=== PATIENT | female | born 1995 | race Caucasian/White ===

== ENCOUNTER 2020-07-15 18:08 | Inpatient (IN) | payer OTHER ==
[~2020-07-15] VITALS: Ht 165.1 cm; Wt 77.2 kg
[2020-07-15] MEDS ORDERED: LR 1,000 ML IV SCH (18:19)
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
--- OUTSIDE RECORDS SUMMARY | 2020-07-15 18:21 | CCD ---
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 Problem Asthma J45.909 Active 139491969 Problem Slow transit constipation K59.01 Active 172776 07 Problem Recurrent major depressive disorder, remission s tatus unspecified F33.9 Active 31969433 Problem Vitamin D deficiency E55.9 Active 44866451 Problem Mild asthma without complication, unspecified wh ether persistent J45.909 Active 330885022 Problem Chronic neck pain M54.2 Active 1850557683911 Problem Chronic right shoulder pain M25.511 Active 2679 11971 Problem Other muscle spasm M62.838 Active 40857804 Problem Pain in right knee M25.561 Active 2728919148192 04 ALLERGIES Allergen (clinical drug ingredient) Drug/Non Drug Allergy do cumented on EMR Reaction Allergy Type Onset Date Status Abilify Unknown Non Drug Allergy Active ENCOUNTERS from 1995 to 2020-05-03 Encounter Location Date Provider Diagnosis [facility] [address] [place] [phone] 15 May, 2002 Provider Test IMMUNIZATIONS Vaccine Route Administration Date Status PPD [...] Information RESULTS No Results REASON FOR VISIT No Information MEDICAL (GENERAL) HISTORY Type Description Date Medical [...] Coverage End Date [employer] [address] [facility] [id number] Vimal MORA self
--- OUTSIDE RECORDS SUMMARY | 2020-07-15 18:21 | CCD ---
Author Author Eduardo [facility] er Organization 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 Problem Asthma J45.909 Active 639862052 Problem Slow transit constipation K59.01 Active 035018 07 Problem Recurrent major depressive disorder, remission s tatus unspecified F33.9 Active 27783505 Problem Vitamin D deficiency E55.9 Active 46877137 Problem Mild asthma without complication, unspecified wh ether persistent J45.909 Active 890440591 Problem Chronic neck pain M54.2 Active 0783950872547 Problem Chronic right shoulder pain M25.511 Active 2679 65238 Problem Other muscle spasm M62.838 Active 15057493 Problem Pain in right knee M25.561 Active 6646451358740 04 ALLERGIES Allergen (clinical drug ingredient) Drug/Non Drug Allergy do cumented on EMR Reaction Allergy Type Onset Date Status Abilify Unknown Non Drug Allergy Active ENCOUNTERS from 1995 to 2020-04-30 Encounter Location Date Provider Diagnosis [facility] [address] [place] [address] Apr, Aatlindsey Negrete Foot pain M79.673 IMMUNIZATIONS Vaccine Route Administration Date Status PPD [...] Information RESULTS No Results REASON FOR VISIT Foot pain MEDICAL (GENERAL) HISTORY Type Description Date Medical [...] No Information FUNCTIONAL STATUS No Information ASSESSMENTS Encounter Date Diagnosis Assessment Notes Treatment Notes Treatm ent Clinical Notes Apr, Foot pain (ICD-10 - M79.673) 1. Patient returns to office after she injured her foot. She reports that about two weeks ago, she kicked a gate and broke her fourth metatarcal. She was evaluated in the emergency room upon the onset of the injury, the emergency department provided her with a walking cast. She reports that she is following with orthopedics for this issue. 2. She also reports that recently the air pocket in the cast deflated, and she is currently waiting for a call back on this matter. 3. Patient reports that she is , and her poker machine attendant provided her with 15 days of Oxycodone. I explained to her that I am not going to continue this, and should the othopedic specialist see it as advisable. 4. She is going to follow up with orthopedics in the coming weeks. 5. As this is a very difficult situation, I don't think that anything I am able to help this patient. This is not a chronic pain, this is an acute injury. Patient was able to contact her PCP regarding this, patient reports that PCP recommended that she follow up with Orthopedics. 6. Patient advised to see emergency department should her pain become unmanagable. 7. No medications prescribed at this time. 8. Follow up as needed. PLAN OF TREATMENT Treatment Notes Assessment Notes Clinical Notes Foot pain 1. Patient returns to office after she injured her foot. She reports that about two weeks ago, she kicked a gate and broke her fourth metatarcal. She was evaluated in the emergency room upon the onset of the injury, the emergency department provided her with a walking cast. She reports that she is following with orthopedics for this issue.2. She also reports that recently the air pocket in the cast deflated, and she is currently waiting for a call back on this matter.3. Patient reports that she is , and her poker machine attendant provided her with 15 days of Oxycodone. I explained to her that I am not going to continue this, and should the othopedic specialist see it as advisable.4. She is going to follow up with orthopedics in the coming weeks.5. As this is a very difficult situation, I don't think that anything I am able to help this patient. This is not a chronic pain, this is an acute injury. Patient was able to contact her PCP regarding this, patient reports that PCP recommended that she follow up with Orthopedics.6. Patient advised to see emergency department should her pain become unmanagable.7. No medications prescribed at this time.8. Follow up as needed. Next Appt Details prn Reason: Insurance Providers Payer Name Payer Address Payer Phone Insured Name Patient Relati onship to Insured Coverage Start Date Coverage End Date [employer] [address] [facility] [id number] Vimal MORA self
--- OUTSIDE RECORDS SUMMARY | 2020-07-15 18:21 | CCD ---
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 Problem Asthma J45.909 Active 045804329 Problem Slow transit constipation K59.01 Active 821609 07 Problem Recurrent major depressive disorder, remission s tatus unspecified F33.9 Active 28618838 Problem Vitamin D deficiency E55.9 Active 03283929 Problem Mild asthma without complication, unspecified wh ether persistent J45.909 Active 586011664 Problem Chronic neck pain M54.2 Active 7754132322681 Problem Chronic right shoulder pain M25.511 Active 2679 48843 Problem Other muscle spasm M62.838 Active 65115752 Problem Pain in right knee M25.561 Active 3179771710406 04 ALLERGIES Allergen (clinical drug ingredient) Drug/Non Drug Allergy do cumented on EMR Reaction Allergy Type Onset Date Status Abilify Unknown Non Drug Allergy Active ENCOUNTERS from 1995 to 2020-04-28 Encounter Location Date Provider Diagnosis [facility] [address] [place] [phone] 12 Dec, 2002 Provider Test IMMUNIZATIONS Vaccine Route Administration [...] [employer] [employer] [address] [facility] [address] Vimal MORA self
--- OUTSIDE RECORDS SUMMARY | 2020-07-15 18:22 | CCD ---
Author Author [facility] Organization [facility] Address Unknown Phone Unavailable Care Team Providers Care Commercial Lines Insurance Agent Name Role Phone UNKNOWN Unavailable Unavailable WOLFE, B ANDREW CARDENAS Unavailable Unavailable WOLFE, B ANDREW CARDENAS Unavailable Unavailable WOLFE, B ANDREW CARDENAS Unavailable Unavailable WOLFE, B ANDREW CARDENAS Unavailable Unavailable WOLFE, B ANDREW CARDENAS Unavailable Unavailable WOLFE, B ANDREW CARDENAS Unavailable Unavailable WOLFE, B ANDREW CARDENAS Unavailable Unavailable WOLFE, B ANDREW CARDENAS Unavailable Unavailable WOLFE, B ANDREW CARDENAS Unavailable Unavailable WOLFE, B ANDREW CARDENAS Unavailable Unavailable WOLFE, B ANDREW CARDENAS Unavailable Unavailable WOLFE, B ANDREW CARDENAS Unavailable Unavailable WOLFE, B ANDREW CARDENAS Unavailable Unavailable WOLFE, B ANDREW CARDENAS Unavailable Unavailable WOLFE, B ANDREW CARDENAS Unavailable Unavailable WOLFE, B ANDREW CARDENAS Unavailable Unavailable WOLFE, B ANDREW CARDENAS Unavailable Unavailable WOLFE, B ANDREW CARDENAS Unavailable Unavailable WOLFE, B ANDRWE CARDENAS Unavailable Unavailable WOLFE, Tayla MORALES MD Unavailable Unavailable WOLFE, Tayla MORALES MD Unavailable Unavailable WOLFE, Tayla MORALES MD Unavailable Unavailable WOLFE, Tayla MORALES MD Unavailable Unavailable WOLFE, Tayla MORALES MD Unavailable Unavailable WOLFE, Tayla MORALES MD Unavailable Unavailable WOLFE, Tayla MORALES MD Unavailable Unavailable WOLFE, Tayla MORALES MD Unavailable Unavailable WOLFE, Tayla MORALES MD Unavailable Unavailable Patrick F Brown, F CASING MIXER CASING MIXER Unavailable Unavailable Patrick F Brown, F CASING MIXER CASING MIXER Unavailable Unavailable NILOOBAN, JUAN MANUEL CARDENAS Unavailable Unavailable NILOOBAN, JUAN MANUEL CARDENAS Unavailable Unavailable NILOOBAN, JUAN MANUEL CARDENAS Unavailable Unavailable NILOOBAN, JUAN MANUEL CARDENAS Unavailable Unavailable NILOOBAN, JUAN MANUEL CARDENAS Unavailable Unavailable Batich, Nathaniel Morales MD Unavailable Unavailable Batich, Nathaniel Morales MD Unavailable Unavailable Batich, Nathaniel Morales MD Unavailable Unavailable Batich, Nathaniel Morales MD Unavailable Unavailable Batich, Nathaniel Morales MD Unavailable Unavailable Batich, Nathaniel Morales MD Unavailable Unavailable Batich, Nathaniel Morales MD Unavailable Unavailable Batich, Nathaniel Morales MD Unavailable Unavailable Batich, Nathaniel Morales MD Unavailable Unavailable Batich, Nathaniel Morales MD Unavailable Unavailable Batich, Nathaniel Morales MD Unavailable Unavailable Batich, Nathaniel Morales MD Unavailable Unavailable Batich, Nathaniel Morales MD Unavailable Unavailable Batich, Nathaniel Morales MD Unavailable Unavailable Batich, Nathaniel Morales MD Unavailable Unavailable MARAVEGIAS, Maria R SUBRAMANIAN MD Unavailable Unavailable MARAVEGIAS, Maria R SUBRAMANIAN MD Unavailable Unavailable MARAVEGIAS, Maria R SUBRAMANIAN MD Unavailable Unavailable MARAVEGIAS, Maria R SUBRAMANIAN MD Unavailable Unavailable MARAVEGIAS, Maria R SUBRAMANIAN MD Unavailable Unavailable MARAVEGIAS, Maria R SUBRAMANIAN MD Unavailable Unavailable MARAVEGIAS, Maria R SUBRAMANIAN MD Unavailable Unavailable MARAVEGIAS, Maria R SUBRAMANIAN MD Unavailable Unavailable MARAVEGIAS, Maria R SUBRAMANIAN MD Unavailable Unavailable MARAVEGIAS, Maria R SUBRAMANIAN MD Unavailable Unavailable MARAVEGIAS, Maria R SUBRAMANIAN MD Unavailable Unavailable MARAVEGIAS, Maria R SUBRAMANIAN MD Unavailable Unavailable MARAVEGIAS, Maria R SUBRAMANIAN MD Unavailable Unavailable MARAVEGIAS, Maria R SUBRAMANIAN MD Unavailable Unavailable Luis Daniel L Swinwood, L CASING MIXER-C CASING MIXER Unavailable Unavailable Luis Daniel L Swinwood, L CASING MIXER-C CASING MIXER Unavailable Unavailable Nadia JACKSON MD Unavailable Unavailable GIOVANNA ALEJANDRO Unavailable Unavailable JAVON, GIOVANNA PA Unavailable Unavailable JAVON, GIOVANNA PA Unavailable Unavailable JAVON, GIOVANNA PA Unavailable Unavailable JAVON, GIOVANNA PA Unavailable Unavailable JAVON, GIOVANNA PA Unavailable Unavailable JAVON, GIOVANNA PA Unavailable Unavailable JAVON, GIOVANNA PA Unavailable Unavailable JAVON, GIOVANNA PA Unavailable Unavailable JAVON, GIOVANNA PA Unavailable Unavailable JAVON, GIOVANNA PA Unavailable Unavailable JAVON, GIOVANNA PA Unavailable Unavailable JAVON, GIOVANNA PA Unavailable Unavailable JAVON, GIOVANNA PA Unavailable Unavailable Quebeck, F Segun PA Unavailable Unavailable Quebeck, F Segun PA Unavailable Unavailable Quebeck, F Segun PA Unavailable Unavailable Ely, F Segun PA Unavailable Unavailable Ely, F Segun PA Unavailable Unavailable Quebeck, F Segun PA Unavailable Unavailable Quebeck, F Segun PA Unavailable Unavailable Ely, F Segun PA Unavailable Unavailable Quebeck, F Segun PA Unavailable Unavailable Ely, F Segun PA Unavailable Unavailable Tram Anderson MD Unavailable Unavailable Tram Anderson MD Unavailable Unavailable Tram Anderson MD Unavailable Unavailable Tram Anderson MD Unavailable Unavailable Tram Anderson MD Unavailable Unavailable Tram Anderson MD Unavailable Unavailable Tram Anderson MD Unavailable Unavailable Tram Anderson MD Unavailable Unavailable Tram Anderson MD Unavailable Unavailable Tram Anderson MD Unavailable Unavailable Tram Anderson MD Unavailable Unavailable Tram Anderson MD Unavailable Unavailable Tram Anderson MD Unavailable Unavailable Tram Anderson MD Unavailable Unavailable Tram Anderson MD Unavailable Unavailable Tram Anderson MD Unavailable Unavailable Tram Anderson MD Unavailable Unavailable Tram Anderson MD Unavailable Unavailable Tram Anderson MD Unavailable Unavailable Tram Anderson MD Unavailable Unavailable Tram Anderson MD Unavailable Unavailable Tram Anderson MD Unavailable Unavailable Tram Anderson MD Unavailable Unavailable Tram Anderson MD Unavailable Unavailable Tram Anderson MD Unavailable Unavailable Tram Anderson MD Unavailable Unavailable Tram Anderson MD Unavailable Unavailable Tram Anderson MD Unavailable Unavailable Tram Anderson MD Unavailable Unavailable Tram Anderson MD Unavailable Unavailable Tram Anderson MD Unavailable Unavailable Tram Anderson MD Unavailable Unavailable Tram Anderson MD Unavailable Unavailable Tram Anderson MD Unavailable Unavailable Tram Anderson MD Unavailable Unavailable Tram Anderson MD Unavailable Unavailable Tram Anderson MD Unavailable Unavailable Tram Anderson MD Unavailable Unavailable Tram Anderson MD Unavailable Unavailable Tram Anderson MD Unavailable Unavailable Tram Anderson MD Unavailable Unavailable Tram Anderson MD Unavailable Unavailable Tram Anderson MD Unavailable Unavailable Tram Anderson MD Unavailable Unavailable Tram Anderson MD Unavailable Unavailable Tram Anderson MD Unavailable Unavailable Tram Anderson MD Unavailable Unavailable Tram Anderson MD Unavailable Unavailable Tram Anderson MD Unavailable Unavailable Tram Anderson MD Unavailable Unavailable Tram Anderson MD Unavailable Unavailable Tram Anderson MD Unavailable Unavailable Tram Anderson MD Unavailable Unavailable Tram Anderson MD Unavailable Unavailable Nadia Barton MD Unavailable Unavailable Nadia Barton MD Unavailable Unavailable BROWN, HOLLIS PATRICK PIER HAND HELPER Unavailable Unavailable BROWN, HOLLIS PATRICK PIER HAND HELPER Unavailable Unavailable BROWN, HOLLIS PATRICK PIER HAND HELPER Unavailable Unavailable BROWN, HOLLIS PATRICK PIER HAND HELPER Unavailable Unavailable BROWN, HOLLIS PATRICK PIER HAND HELPER Unavailable Unavailable BROWN, HOLLIS PATRICK PIER HAND HELPER Unavailable Unavailable BROWN, HOLLIS PATRICK PIER HAND HELPER Unavailable Unavailable BROWN, HOLLIS PATRICK PIER HAND HELPER Unavailable Unavailable BROWN, HOLLIS PATRICK PIER HAND HELPER Unavailable Unavailable BROWN, HOLLIS PATRICK PIER HAND HELPER Unavailable Unavailable BROWN, HOLLIS PATRICK PIER HAND HELPER Unavailable Unavailable BROWN, HOLLIS PATRICK PIER HAND HELPER Unavailable Unavailable BROWN, HOLLIS PATRICK PIER HAND HELPER Unavailable Unavailable BROWN, HOLLIS PATRICK PIER HAND HELPER Unavailable Unavailable BROWN, HOLLIS PATRICK PIER HAND HELPER Unavailable Unavailable BROWN, HOLLIS PATRICK PIER HAND HELPER Unavailable Unavailable BROWN, HOLLIS PATRICK PIER HAND HELPER Unavailable Unavailable BROWN, HOLLIS PATRICK PIER HAND HELPER Unavailable Unavailable BROWN, HOLLIS PATRICK PIER HAND HELPER Unavailable Unavailable BROWN, HOLLIS PATRICK PIER HAND HELPER Unavailable Unavailable BROWN, HOLLIS PATRICK PIER HAND HELPER Unavailable Unavailable BROWN, HOLLIS PATRICK PIER HAND HELPER Unavailable Unavailable BROWN, HOLLIS PATRICK PIER HAND HELPER Unavailable Unavailable BROWN, HOLLIS PATRICK PIER HAND HELPER Unavailable Unavailable BROWN, HOLLIS PATRICK PIER HAND HELPER Unavailable Unavailable BROWN, HOLLIS PATRICK PIER HAND HELPER Unavailable Unavailable BROWN, HOLLIS PATRICK PIER HAND HELPER Unavailable Unavailable BROWN, HOLLIS PATRICK PIER HAND HELPER Unavailable Unavailable BROWN, HOLLIS PATRICK PIER HAND HELPER Unavailable Unavailable BROWN, HOLLIS PATRICK PIER HAND HELPER Unavailable Unavailable BROWN, HOLLIS PATRICK PIER HAND HELPER Unavailable Unavailable BROWN, HOLLIS PATRICK PIER HAND HELPER Unavailable Unavailable BROWN, HOLLIS PATRICK PIER HAND HELPER Unavailable Unavailable BROWN, HOLLIS PATRICK PIER HAND HELPER Unavailable Unavailable BROWN, HOLLIS PATRICK PIER HAND HELPER Unavailable Unavailable BROWN, HOLLIS PATRICK PIER HAND HELPER Unavailable Unavailable BROWN, HOLLIS PATRICK PIER HAND HELPER Unavailable Unavailable BROWN, HOLLIS PATRICK PIER HAND HELPER Unavailable Unavailable BROWN, HOLLIS PATRICK PIER HAND HELPER Unavailable Unavailable MORAN, W FELECIA PA Unavailable Unavailable MORAN, W FELECIA PA Unavailable Unavailable MORAN, W FELECIA PA Unavailable Unavailable MORAN, W FELECIA PA Unavailable Unavailable MORAN, W FELECIA PA Unavailable Unavailable MORAN, W FELECIA PA Unavailable Unavailable MORAN, W FELECIA PA Unavailable Unavailable MORAN, W FELECIA PA Unavailable Unavailable MORAN, W FELECIA PA Unavailable Unavailable MORAN, W FELECIA PA Unavailable Unavailable MORAN, W FELECIA PA Unavailable Unavailable MORAN, W FELECIA PA Unavailable Unavailable MORAN, W FELECIA PA Unavailable Unavailable MORAN, W FELECIA PA Unavailable Unavailable MORAN, W FELECIA PA Unavailable Unavailable MORAN, W FELECIA PA Unavailable Unavailable MORAN, W FELECIA PA Unavailable Unavailable MORAN, W FELECIA PA Unavailable Unavailable MORAN, W FELECIA PA Unavailable Unavailable MORAN, W FELECIA PA Unavailable Unavailable MORAN, W FELECIA PA Unavailable Unavailable MORAN, W FELECIA PA Unavailable Unavailable MORAN, W FELECIA PA Unavailable Unavailable MORAN, W FELECIA PA Unavailable Unavailable MORAN, W FELECIA PA Unavailable Unavailable MORAN, W FELECIA PA Unavailable Unavailable MORAN, W FELECIA PA Unavailable Unavailable MORAN, W FELECIA PA Unavailable Unavailable MORAN, W FELECIA PA Unavailable Unavailable MORAN, W FELECIA PA Unavailable Unavailable MORAN, W FELECIA PA Unavailable Unavailable MORAN, W FELECIA PA Unavailable Unavailable MORAN, W FELECIA PA Unavailable Unavailable MORAN, W FELECIA PA Unavailable Unavailable MORAN, W FELECIA PA Unavailable Unavailable MORAN, W FELECIA PA Unavailable Unavailable MORAN, W FELECIA PA Unavailable Unavailable MORAN, W FELECIA PA Unavailable Unavailable MORAN, W FELECIA PA Unavailable Unavailable MORAN, W FELECIA PA Unavailable Unavailable MORAN, W FELECIA PA Unavailable Unavailable MORAN, W FELECIA PA Unavailable Unavailable MORAN, W FELECIA PA Unavailable Unavailable MORAN, W FELECIA PA Unavailable Unavailable MORAN, W FELECIA PA Unavailable Unavailable MORAN, W FELECIA PA Unavailable Unavailable Fortino Randhawa DO Unavailable Unavailable Fortino Randhawa DO Unavailable Unavailable Fortino Randhawa DO Unavailable Unavailable Fortino Randhawa DO Unavailable Unavailable Maria Luisa Gee CASING MIXER Unavailable Maria Luisa Gee CASING MIXER Unavailable Maria Luisa Gee CASING MIXER Unavailable Maria Luisa Gee CASING MIXER Unavailable Maria Luisa Gee CASING MIXER Unavailable GeeMaria Luisa Belgica CASING MIXER Unavailable Maria Luisa Gee CASING MIXER Unavailable Maria Luisa Gee CASING MIXER Unavailable VINH CANO MD Unavailable Unavailable VINH CANO MD Unavailable Unavailable VINH CANO MD Unavailable Unavailable VINH CANO MD Unavailable Unavailable VINH CANO MD Unavailable Unavailable VINH CANO MD Unavailable Unavailable VINH CANO MD Unavailable Unavailable VINH CANO MD Unavailable Unavailable VINH CANO MD Unavailable Unavailable VINH CANO MD Unavailable Unavailable VINH CANO MD Unavailable Unavailable VINH CANO MD Unavailable Unavailable VINH CANO MD Unavailable Unavailable VINH CANO MD Unavailable Unavailable VINH CANO MD Unavailable Unavailable VINH CANO MD Unavailable Unavailable VINH CANO MD Unavailable Unavailable VINH CANO MD Unavailable Unavailable JADEN TORRES MD Unavailable Unavailable JADEN TORRES MD Unavailable Unavailable JADEN TORRES MD Unavailable Unavailable JADEN TORRES MD Unavailable Unavailable JADEN TORRES MD Unavailable Unavailable Nadia MARQUEZ MD Unavailable Unavailable Nadia MARQUEZ MD Unavailable Unavailable SWINWOOD, LUIS DANIEL PIER HAND HELPER Unavailable Unavailable SWINWOOD, LUIS DANIEL PIER HAND HELPER Unavailable Unavailable SWINWOOD, LUIS DANIEL PIER HAND HELPER Unavailable Unavailable SWINWOOD, LUIS DANIEL PIER HAND HELPER Unavailable Unavailable SWINWOOD, LUIS DANIEL PIER HAND HELPER Unavailable Unavailable SWINWOOD, LUIS DANIEL PIER HAND HELPER Unavailable Unavailable SWINWOOD, LUIS DANIEL PIER HAND HELPER Unavailable Unavailable SWINWOOD, LUIS DANIEL PIER HAND HELPER Unavailable Unavailable SWINWOOD, LUIS DANIEL PIER HAND HELPER Unavailable Unavailable SWINWOOD, LUIS DANIEL PIER HAND HELPER Unavailable Unavailable SWINWOOD, LUIS DANIEL PIER HAND HELPER Unavailable Unavailable SWINWOOD, LUIS DANIEL PIER HAND HELPER Unavailable Unavailable SWINWOOD, LUIS DANIEL PIER HAND HELPER Unavailable Unavailable SWINWOOD, LUIS DANIEL PIER HAND HELPER Unavailable Unavailable SWINWOOD, LUIS DANIEL PIER HAND HELPER Unavailable Unavailable SWINWOOD, LUIS DANIEL PIER HAND HELPER Unavailable Unavailable SWINWOOD, LUIS DANIEL PIER HAND HELPER Unavailable Unavailable SWINWOOD, LUIS DANIEL PIER HAND HELPER Unavailable Unavailable SWINWOOD, LUIS DANIEL PIER HAND HELPER Unavailable Unavailable SWINWOOD, LUIS DANIEL PIER HAND HELPER Unavailable Unavailable Tram Anderson MD Unavailable Unavailable Tram Anderson MD Unavailable Unavailable Tram Anderson MD Unavailable Unavailable Tram Anderson MD Unavailable Unavailable Tram Anderson MD Unavailable Unavailable Tram Anderson MD Unavailable Unavailable Tram Anderson MD Unavailable Unavailable Tram Anderson MD Unavailable Unavailable Tram Anderson MD Unavailable Unavailable Tram Anderson MD Unavailable Unavailable Tram Anderson MD Unavailable Unavailable Tram Anderson MD Unavailable Unavailable Tram Anderson MD Unavailable Unavailable Tram Anderson MD Unavailable Unavailable Tram Anderson MD Unavailable Unavailable Tram Anderson MD Unavailable Unavailable Tram Anderson MD Unavailable Unavailable Tram Anderson MD Unavailable Unavailable Tram Anderson MD Unavailable Unavailable Tram Anderson MD Unavailable Unavailable Tram Anderson MD Unavailable Unavailable Tram Anderson MD Unavailable Unavailable Tram Anderson MD Unavailable Unavailable Tram Anderson MD Unavailable Unavailable Tram Anderson MD Unavailable Unavailable Tram Anderson MD Unavailable Unavailable Tram Anderson MD Unavailable Unavailable Tram Anderson MD Unavailable Unavailable Tram Anderson MD Unavailable Unavailable Tram Anderson MD Unavailable Unavailable Tram Anderson MD Unavailable Unavailable Tram Anderson MD Unavailable Unavailable Tram Anderson MD Unavailable Unavailable Tram Anderson MD Unavailable Unavailable Tram Anderson MD Unavailable Unavailable Tram Anderson MD Unavailable Unavailable Tram Anderson MD Unavailable Unavailable Tram Anderson MD Unavailable Unavailable Tram Anderson MD Unavailable Unavailable Tram Anderson MD Unavailable Unavailable Tram Anderson MD Unavailable Unavailable Tram Anderson MD Unavailable Unavailable Tram Anderson MD Unavailable Unavailable Tram Anderson MD Unavailable Unavailable Tram Anderson MD Unavailable Unavailable Tram Anderson MD Unavailable Unavailable Tram Anderson MD Unavailable Unavailable Tram Anderson MD Unavailable Unavailable Tram Anderson MD Unavailable Unavailable Tram Anderson MD Unavailable Unavailable Tram Anderson MD Unavailable Unavailable Tram Anderson MD Unavailable Unavailable Tram Anderson MD Unavailable Unavailable Tram Anderson MD Unavailable Unavailable Nadia Ramírez MD Unavailable Unavailable Nadia Ramírez MD Unavailable Unavailable ELIAN, BILL PA Unavailable Unavailable ELIAN, BILL PA Unavailable Unavailable ELIAN, BILL PA Unavailable Unavailable ELIAN, BILL PA Unavailable Unavailable ELIAN, BILL PA Unavailable Unavailable ELIAN, BILL PA Unavailable Unavailable ELIAN, BILL PA Unavailable Unavailable ELIAN, BILL PA Unavailable Unavailable ELIAN, BILL PA Unavailable Unavailable ELIAN, BILL PA Unavailable Unavailable ELIAN, BILL PA Unavailable Unavailable ELIAN, BILL PA Unavailable Unavailable ELIAN, BILL PA Unavailable Unavailable ELIAN, BILL PA Unavailable Unavailable BILL PLUMMER Unavailable Unavailable Nadia Barton MD Unavailable Unavailable Re-disclosure Warning The records that you are about to access may contain information from federally-assisted alcohol or drug abuse programs. If such information is present, then the following federally mandated warning applies: This information has been disclosed to you from records protected by federal confidentiality rules (42 CFR part 2). The federal rules prohibit you from making any further disclosure of this information unless further disclosure is expressly permitted by the written consent of the person to whom it pertains or as otherwise permitted by 42 CFR part 2. A general authorization for the release of medical or other information is NOT sufficient for this purpose. The Federal rules restrict any use of the information to criminally investigate or prosecute any alcohol or drug abuse patient.The records that you are about to access may contain highly sensitive health information, the redisclosure of which is protected by Article 27-F of the [facility] Public Health law. If you continue you may have access to information: Regarding HIV / AIDS; Provided by facilities licensed or operated by the [facility] Office of Mental Health; or Provided by the [facility] Office for People With Developmental Disabilities. If such information is present, then the following [facility] mandated warning applies: This information has been disclosed to you from confidential records which are protected by state law. State law prohibits you from making any further disclosure of this information without the specific written consent of the person to whom it pertains, or as otherwise permitted by law. Any unauthorized further disclosure in violation of state law may result in a fine or fci sentence or both. A general authorization for the release of medical or other information is NOT sufficient authorization for further disc losure. Allergies and Adverse Reactions Type Description Substance Reaction Status Data Source(s ) Drug allergy ABILIFY ABILIFY DIZZINESS MODERATE Cli [facility] Abilify Abilify aripiprazole 2 MG Oral Tablet [Abilify] Unknown Active eCW1 ([facility]) Abilify Abilify Abilify Unknown Active eCW1 ([facility]) Encounters Encounter Providers Location Date Indications Data Source(s ) Emergency Attender: Olena Barton MDAttender: Olena doyle MD ED-ED 07/15/2020 04:13:00 PM EST LABOR [facility] LABOR Outpatient Attender: VINH CANO MD ED-IMAG 2020 09:13:00 AM EST - 07/13/2020 09:14:00 AM [facility] Patient discharged. Outpatient Attender: VINH CANO MD CPSCAORT-CPSGNOBG 06/28 03:05:00 PM EST - 07/08/2020 03:06:00 PM EST [facility] Patient discharged. Outpatient Attender: SHANTANU CPSCAORT-LABEJN 06/30/2020 02:48:00 PM [facility] Outpatient Attender: JULIAN Kitchen FNPAttender: PATRICK KITCHEN NP ED-LAB 06/30/2020 12:44:00 PM EST - 06/30/2020 12:45:00 PM EST [address] Z[address] Patient discharged. Outpatient Attender: SHANTANU CPSCAORT-LABEJN 06/28/2020 08:52:00 PM [facility] Outpatient Attender: JULIAN Kitchen FNPAttender: PATRICK KITCHEN NP ED-LABPN 06/28/2020 03:53:00 PM EST - 06/28/2020 03:54:00 PM EST [address] [address] Patient discharged. Outpatient Attender: PATRICK KITCHEN NP CPSCAORT-CPSGNOBG 05/2020 02:36:00 PM EST - 06/28/2020 02:37[facility] [address] [place] [address] 05/26/2020 12:00:00 AM EST [facility] Outpatient Attender: Belg[place] JORDAN CPSCAORT-CPSCAORT 1 07/01/2019 09:35:00 AM EST - 04/30/2020 09:36:00 AM EST [facility] Patient discharged. Outpatient [address] [facility] [address] [place] [address] 04/28/2020 12:00:00 AM EST eCW1 ([facility]) Outpatient Attender: Andrew Abel MD CPSCAORT-CPSCNOBG 04/23 02:57:00 PM EST - 04/23/2020 02:58:00 PM EST Z3A.25 [facility] Z3A.25 Patient discharged. Outpatient Attender: [place] JORDAN CPSCAORT-CPSCAORT 1 06/19/2019 01:54:00 PM EST - 2020 01:55:00 PM EST [facility] Patient discharged. Outpatient Attender: ADNREW [facility]OLFE [facility] 04/08 10:41:00 AM EST - 04/08/2020 10:42:00 AM EST [facility] Patient discharged. Emergency Attender: Segun MORRIS ED-ED 10:08:00 AM EST - 04/06/2020 11:12:00 AM EST LEFT FOOT SWOLLEN [facility] LEFT FOOT SWOLLEN Patient discharged. Outpatient [address] [facility] [address] [place] [address] 03/30/2020 12:00:00 AM EST eCW1 ([facility]) Outpatient [address] [facility] [address] [place] [address] 03/30/2020 12:00:00 AM EST eCW1 ([facility]) Outpatient [address] [facility] [address] [place] [address] 03/25/2020 12:00:00 AM EDT eCW1 ([facility]) Outpatient Attender: Andrew Abel MD ED-IMAG 020 03:04:00 PM EDT - 03/19/2020 03:05:00 PM EDT ANATOMY SCREENING [facility] ANATOMY SCREENING Patient discharged. Outpatient Attender: Andrew Abel MD CPSCAORT-CPSCNOBG 03/15 09:41:00 AM EDT - 03/15/2020 09:42:00 AM EDT O23.592,N76.0 [facility] O23.592,N76.0 Patient discharged. Outpatient CPSCAORT-LABEJN 03/05/2020 02:58:00 PM EDT [facility] Outpatient Attender: Elenita Anderson MD ED-[facility] 020 12:23:00 PM EDT - 03/05/2020 12:24:00 PM EDT Z021 [facility] Z021 Patient discharged. Outpatient [address] [facility] [address] [place] [address] 03/03/2020 12:00:00 AM EDT eCW1 ([facility]) Emergency Attender: JADEN TORRES MD ER-ER 1 06:24:00 PM EDT - 03/02/2020 07:59:00 PM EDT [facility] Patient discharged. Outpatient Attender: Andrew Abel MD CPSCAORT-CPSCNOBG 02/23 01:47:00 PM EDT - 02/24/2020 01:48:00 PM EDT Z3A.16 [facility] Z3A.16 Patient discharged. Emergency Attender: JUAN MANUEL CANNON MD ER-ER 02/15/2020 02:59:00 PM EDT - 02/15/2020 05:44:00 PM EDT [facility] Patient discharged. Emergency Attender: GIOVANNA MCCALLUM dmitter: GIOVANNA ALEJANDRO PAReferrer: GIOVANNA ALEJANDRO PAConsultant: Elenita Anderson MD [id number] 02/07/2020 12:21 :00 PM EDT - 02/07/2020 02:20:00 PM EDT Injury of toe [facility] Injury of toe Patient discharged. Outpatient Attender: Andrew Abel MD CPSCAORT-CPSCNOBG 01/26 10:10:00 AM EDT - 01/27/2020 10:11:00 AM EDT [facility] Patient discharged. Outpatient 3 [facility] [address] [place] [address] 01/23/2020 12:00:00 AM EDT eCW1 ([facility]) Outpatient Attender: Andrew Abel MD CPSCAORT-IMAPD 020 01:10:00 PM EDT - 01/20/2020 01:11:00 PM EDT 1ST TRIMESTER,Z3A.08 [facility] 1ST TRIMESTER,Z3A.08 Patient discharged. Outpatient 3 [facility] [address] [place] [address] 01/14/2020 12:00:00 AM EDT eCW1 ([facility]) Outpatient Attender: Andrew PERRYCAARLET-CPSCNOBG 12/28 11:43:00 AM EDT - 12/29/2019 11:44:00 AM EDT [facility] Patient discharged. Outpatient 3 [facility] [address] [facility] [address] 12/23/2019 12:00:00 AM EDT eCW1 ([facility]) Outpatient 3 [facility] [address] [place] [address] 12/22/2019 12:00:00 AM EDT eCW1 ([facility]) Outpatient Attender: LUIS DANIEL MARIN NP ED-IMAGH 12/17 01:00:00 PM EDT - 12/18/2019 01:01:00 PM EDT DATING AND VIABILITY [facility] DATING AND VIABILITY Patient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 [facility] Name Value Range Interpretation Code Description Data Zarina rce(s) Supporting Document(s) WBC 12.23 x10E3/uL 4.0[facility].5 [facility] RBC 3.99 x10E6/uL 4.20-5.40 [facility] Hemoglobin 12.3 g/dL 12.0-16.0 [facility] Hematocrit 35.6 % 37.0-47.0 [facility] MCV 89.2 fL 81.0-99.0 [facility] MCH 30.8 pg 27.0-31.0 [facility] MCHC 34.6 g/dL 32.7-35.6 [facility] RDW 12.2 % 11.5-14.0 [facility] Platelet count 239 x10E3/uL 150-450 [facility] MPV 9.8 fl 6.9-9.5 [facility] Neutrophils 72.7 % 34-64 [facility] Lymphocytes 17.3 % 25-45 [facility] Monocytes 7.5 % 1.7-10.6 [facility] Eosinophils 0.7 % 0.4-7.0 [facility] Basophils 0.4 % 0.1-2.0 [facility] Imm. Gran. 1.4 % 0.1-2.0 [facility] Abs. Neutro. 8.89 x10E3/uL 1.2-7.6 [facility] Abs. Lymph. 2.11 x10E3/uL 1.0-3.5 [facility] Abs. [place]. 0.92 x10E3/uL 0.1-1.0 [facility] Abs. Eosin. 0.09 x10E3/uL 0.1-0.7 [facility] Abs. Baso. 0.05 x10E3/uL 0.0-0.1 [facility] Abs. Imm. Gran. 0.17 x10E3/uL 0.0-0.1 [facility] ANRBC% 0 % 0 [facility] ID Date Data Source [id number] 02/15/2020 05:44:00 PM EDT [facility] Physician DocumentationClaxtimothy-Jovani Glass edical CenterName: Rosa BriggsAge: 24 yrsSex: FemaleDOB: 1995MRN: [id number] Date: 02/15/2020Time: 14:53Account#: [id number] 7BPrivacarmencita MD:ED Physician Celso CannonoDisposition Summary:02/15/20 17:27Discharge OrderedLocation: Home Self Care vw7Dlcyrbt: new ys9Brtrriop: have improved xj7Hjvujgmka: Stable gi9Ymelpkhbx- Mild hyperemesis gravidarum mb5- Nausea with vomiting, unspecified mb5- Diarrhea, unspecified fz8Nzamaljb: mb5- With: Private Physician- When: Tomorrow- Reason: Recheck today's complaints, Continuance of careDischarge Instructions:- Discharge Summary Sheet mb5- HYPEREMESIS GRAVIDARUM mb5- VOMITING (6y-Adult) mb5- VOMITING AND DIARRHEA, Nonspecific (Adult) ob9Wyqow:- Medication Reconciliation mb5- Medication Reconciliation Form - 2nd Copy mb 5Prescriptions:- Zofran ODT 4 mg Oral tablet,disintegrating- place 1 tablet by TRANSLINGUAL route every 8 hours As needed; mb520 tablet; Refills: 0, Product Selection PermittedDisposition:01/2019:23 Attestation: I was available for consultation throughout this fcnpatient's ED visit.HPI:15:35 This 24 yrs old White Female presents to ER via Private Vehicle with tp6kcgqabednx of Nausea/Vomiting.15:35 The patient presents to the emergency department with nausea, that is lc2mubsbdid, vomiting, that is intermittent, diarrhea, that isintermittent. Onset: The symptoms/episode began/occurred 3 day(s) ago.15:46 Possible causes: . The symptoms are aggravated by food . hf5Rdkkeleysf signs and symptoms: Pertinent positives: diarrhea, nausea,vomiting. Severity of symptoms: At their worst the symptoms were mildmoderate. The patient has not experienced similar symptoms in thepast. 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 Diclegis 10-10 mg oral TbEC 1 tab once daily2. Vitamin 27-1 mg Oral tab 1 tab once daily- PMHx: None;- Immunization history: Fl u vaccine is not up to date.- Family history: Reviewed and not pertinent, No immediate familymembers are acutely ill.- Social history: Smoking status: Patient states was never smoker oftobacco. Patient uses street drugs, marijuana, ETOH status Deniesuse of ETOH Smoking status: Patient states was never smoker oftobao. Patient uses street drugs, marijuana, Patient/guardiandenies using IV drugs, ETOH status Denies use of ETOH.- Advance Directives:: None.ROS:15:47 Eyes: Negative for injury, pain, redness, and discharge, ENT: sw7Lwgqxpcy for injury, pain, and discharge, Neck: Negative for injury,pain, and swelling, Cardiovascular: Negative for chest pain,palpitations, and edema, Respiratory: Negative for shortness ofbreath, cough, wheezing, and pleuritic chest pain, Back: Negative forinjury and pain, : Negative for injury, bleeding, discharge, andswelling, MS/Extremity: Negative for injury and deformity, Skin:Negative for injury, rash, and discoloration, Neuro: Negative forheadache, weakness, numbness, tingling, and seizure, Psych: Negativefor depression, anxiety, suicide ideation, homicidal ideation, andhallucinations, Allergy/Immunology: Negative for hives, rash, andallergies, Endocrine: Negative for neck swelling, polydipsia,polyuria, polyphagia, and marked weight changes,Hematologic/Lymphatic: Negative for swollen nodes, abnormal bleeding,and unusual bruising. Constitutional: Positive for malaise, poor POintake, Negative for body aches, chills, fever. Abdomen/GI: Positivefor nausea, vomiting, diarrhea.Exam:15:49 Head/Face: Normocephalic, atraumatic. Eyes: Pupils equal round and kt8kbqfsuwt to light, extra-ocular motions intact. Lids and lashesnormal. Conjunctiva and sclera are non-icteric and not injected.Cornea within normal limits. Periorbital areas with no swelling,redness, or edema. ENT: Nares patent. No nasal discharge, no septalabnormalities noted. Tympanic membranes are normal and externalauditory canals are clear. Oropharynx with no redness, swelling, ormasses, exudates, or evidence of obstruction, uvula midline. Mucousmembranes moist. Neck: Trachea midline, no thyromegaly or massespalpated, and no cervical lymphadenopathy. Supple, full range ofmotion w ithout nuchal rigidity, or vertebral point tenderness. NoMeningismus. Chest/axilla: Normal chest wall appearance and motion.Nontender with no deformity. No lesions are appreciated.Respiratory: Lungs have equal breath sounds bilaterally, clear toauscultation and percussion. No rales, rhonchi or wheezes noted. Noincreased work of breathing, no retractions or nasal flaring. Back:No spinal tenderness. No costovertebral tenderness. Full range ofmotion. Skin: Warm, dry with normal turgor. Normal color with norashes, no lesions, and no evidence of cellulitis. MS/ Extremity:Pulses equal, no cyanosis. Neurovascular intact. Full, normal rangeof motion. Neuro: Awake and alert, GCS 15, oriented to person,place, time, and situation. Cranial nerves II-XII grossly intact.Motor strength 5/5 in all extremities. Sensory grossly intact.Cerebellar exam normal. Normal gait. Psych: Awake, alert, withorientation to person, place and time. Behavior, mood, and affectare within normal limits.15:49 Constitutional: The patient appears in no acute distress, alert,awake, comfortable, non-diaphoretic, non-toxic, well developed, wellhydrated, well groomed, well nourished.15:49 Cardiovascular: Rate: normal, actual rate is 90 bpm, Rhythm:regular, Heart sounds: normal, normal S1and S2.15:49 Abdomen/GI: Inspection: abdomen appears normal, Bowel sounds: normal,Palpation: abdomen is soft and non-tender, in all quadrants.17:29 Skin: Appearance: Color: pink, Temperature: warm, Moisture: dry. tz5Rnlpr Signs:14:55 BP 120 / 79 LA Sitting (auto/reg); Pulse 93; Resp 22; Temp 98(TE); zsPulse Ox 97% ; Weight 75 kg; Height 5 ft. 5 in. (165.10 cm); Pain4/10;17:43 BP 117 / 74; Pulse 81; Resp 17; zs14:55 Body Mass Index 27.51 (75.00 kg, 165.10 cm) zsMDM:15:01 Patient medically screened. mb515:50 Data reviewed: vital signs, nurses notes. :03 Order name: CBC with diff; Complete Time: 17:02 mb5001/2017:11 Interpretation: Normal except: WBC 12.23; RBC 3.99; Hematocrit 35.6; mb5MPV 9.8; Neutrophils 72.7; Lymphocytes 17.3; Abs. Neutro. 8.89; Abs.Eo sin. 0.09; Abs. Imm. Gran. 0.17.01/2015:03 Order name: Chem 7 Profile; Complete Time: 17:02 :12 Interpretation: Normal except: CRE 0.431. :03 Order name: Urinalysis; Complete Time: 17:10 :11 Interpretation: Normal except: UKET 4+; USG 1.029. :34 Order name: FHT; Complete Time: 16:08 :30 Order name: Other: stool collection supplies; Complete Time: 17:43 el6Uspowblci Medications:15:21 Drug: NS 0.9% 1000 ml [sodium chloride 0.9 % intravenous solution] jlRoute: IV; Rate: bolus; Site: right antecubital;16:08 Follow up: Response: No adverse reaction; IV Status: Completed jlinfusion; IV Intake: 3451am70:21 Drug: Ondansetron 4 mg [ondansetron HCl 2 mg/mL intravenous solution jl(2 mL)] Route: IVP; Site: right antecubital;15:50 Follow up: Response: No adverse reaction; Nausea is decreased jl16:40 Drug: NS 0.9% 1000 ml [sodium chloride 0.9 % intravenous solution] jlRoute: IV; Rate: 500 mL/hr; Site: right antecubital;17:43 Follow up: IV Status: Completed infusion; IV Intake: 250ml zs17:43 Drug: Ondansetron 4 mg [ondansetron HCl 4 mg tablet (1 tabs)] Route: zsPO;17:43 Follow up: Response: Medication administered at discharge. zsSignatures:Dispatcher [employer] Juan Manuel Putnam MD MD fcnShantie, Zachary, RN RN zsBridge, Michelle, JULIAN-C JULIAN-Hqv7VjTjvjiKalyani Helms RN RN jl Name Value Range Interpretation Code Description Data Zarina rce(s) Supporting Document(s) ID Date Data Source [id number] 02/15/2020 05:44:00 PM EDT [facility] terName: Rosa MoraAge: 24 yrsSex: FemaleDOB: 1995MRN: [id number] Date: 02/15/2020Time: 14:53Account#: [id number] MD:Diagnosis: Mild hyperemesis gravidarum;Nausea with vomiting,unspecified;Diarrhea, unspecifiedPresentation:01/2014:53 Presenting complaint: Patient states: I'm 4 months and I zshave not been able to keep anything down in 3 days as well asdiarrhea. Coronavirus Screening: Patient negative for fever andsymptoms of lower respiratory illness (e.g., cough, difficultybreathing). Patient denies exposure to infectious person. Patientdenies international travel or travel to area with widespread COVID19 in the 14 days before illness onset. No symptoms or risksidentified at this time. Communicable Disease Screen: Negative forfever>/= 100 degrees Fahrenheit. Communicable disease screen isnegative. (-) rash or unusual skin lesion (-) travel/contact withtraveler (-) respiratory symptoms.14:53 Acuity: Triage 3 zs14:53 Method Of Arrival: Private Vehicle zs14:54 Acuity Assignment: Triage 3 zsTriage Assessment:14:55 General: Appears in no apparent distress, uncomfortable, Behavior is zsappropriate for age, cooperative. Sepsis Screening: (1)Signs/symptomsinfection Sepsis is not suspected. Pain: Complains of pain in backand abdomen Pain currently is 4 out of 10 on a pain scale. Quality ofpain is described as aching. PSS-3 Now I'm going to ask you somequestions that we ask everyone treated here, no matter what problemthey are here for. It is part of the hospital's policy and it helpsus to make sure we are not missing anything important. Over the past2 weeks, have you felt down, depressed, or hopeless? No. Over thepast 2 weeks, have had thoughts of killing yourself? No. In yourlifetime, have you ever attempted to kill yourself? No. 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 Diclegis 10-10 mg oral TbEC 1 tab once daily2. Vitamin 27-1 mg Oral tab 1 tab once daily- PMHx: None;- Immunization history: Flu vaccine is not up to date.- Family history: Reviewed and not pertinent, No immediate familymembers are acutely ill.- Social history: Smoking status: Patient states was never smoker oftobacco. Patient uses street drugs, marijuana, ETOH status Deniesuse of ETOH Smoking status: Patient states was never smoker oftobacco. Patient uses street drugs, marijuana, Patient/guardiandenies using IV drugs, ETOH status Denies use of ETOH.- Advance Directives:: None.Screenin:11 Abuse screen: Denies threats or abuse. Nutritional screening: No jldeficits noted. Offer of HIV testing: patient was previously offeredscreening. Fall Risk IV access (20 points).Assessment:15:10 Pain: Complains of pain in abdomen and back Pain currently is 6 out jlof 10 on a pain scale. Scaled used was Verbal. General: Appears in noapparent distress, Behavior is cooperative. Neuro: Level ofConsciousness is awake, alert. GI: Reports diarrhea, nausea,vomiting. : Denies burning with urination.15:24 GI: Abdomen is non- distended Bowel sounds present X 4 quads. jlVital Signs:14:55 BP 120 / 79 LA Sitting (auto/reg); Pulse 93; Resp 22; Temp 98(TE); zsPulse Ox 97% ; Weight 75 kg; Height 5 ft. 5 in. (165.10 cm); Pain4/10;17:43 BP 117 / 74; Pulse 81; Resp 17; zs14:55 Body Mass Index 27.51 (75.00 kg, 165.10 cm) zsED Course:14:53 Patient arrived in ED. zs14:54 Triage completed. zs15:01 Magali Olivas FNP-C [facility] mb515:01 Juan Manuel Cannon MD is Attending Physician. mb515:07 Kalyani Helms, MURPHY is Primary Nurse. jl15:11 Patient has correct armband on for positive identification. jl15:24 Inserted saline lock: 20 gauge in right antecubital area and blood jlcollected.17:43 No Physician assisted procedures completed. Discontinued IV intact, zspressure dressing applied, No redness/swelling at site.Administered Medications:15:21 Drug: NS 0.9% 1000 ml [sodium chloride 0.9 % intravenous solution] jlRoute: IV; Rate: bolus; Site: right antecubital;16:08 Follow up: Response: No adverse reaction; IV Status: Completed jlinfusion; IV Intake: 3438rq94:21 Drug: Ondansetron 4 mg [ondansetron HCl 2 mg/mL intravenous solution jl(2 mL)] Route: IVP; Site: right antecubital;15:50 Follow up: Response: No adverse reaction; Nausea is decreased jl16:40 Drug: NS 0.9% 1000 ml [sodium chloride 0.9 % intravenous solution] jlRoute: IV; Rate: 500 mL/hr; Site: right antecubital;17:43 Follow up: IV Status: Completed infusion; IV Intake: 250ml zs17:43 Drug: Ondansetron 4 mg [ondansetron HCl 4 mg tablet (1 tabs)] Route: zsPO;17:43 Follow up: Response: Medication administered at discharge. zsIntake:16:08 IV: 1000ml; Total: 1000ml. jl17:43 IV: 250ml; Total: 1250ml. zsOutcome:17:27 Discharge ordered by . mb517:43 Disposition: Discharged to home ambulatory, with significant other. zs17:43 Condition: stable.17:43 Discharge instructions given to patient, Instructed on dischargeinstructions, follow up and referral plans. medication usage,Demonstrated understanding of instructions, medications,Prescriptions given X 1.17:43 Discharge Assessment: Patient verbalized understanding of dispositioninstructions. Patient has no functional deficits.17:44 Patient left the ED. zsSignatures:Raphael Lim, RN RN zsMagali Olivas, JEAN PAUL CASING MIXER-Mbt1QkDwryxKalyani Helms RN RN jl Name Value Range Interpretation Code Description Data Zarina rce(s) Supporting Document(s) ID Date Data Source [id number] 02/13/2020 01:19:33 PM T [facility] [address] [place] [address] TELEPHONE RADIOLOGY DEPARTMENT Name: [facility] #: [id number] : 1995 Ordering Physician: JAVON MONSIVAIS Sex: F Date: 02/07/20 Admission Type: E/R X-ray Number: [id number] Unsigned Transcriptions are preliminary reports and do not represent a Medical or Legal Document XRAY FOOT LEFT MIN 3V [id number] COMPLETE:02/07/20 13:46 LEI [id number] (REASON FOR PROCESS: PAIN Prior examination not available. FINDINGS: Examination of the left foot 4 views submitted. Routine views show no evidence for fracture or dislocation. The joint spaces are well maintained and the articulating surfaces are smooth. No osseous abnormality is demonstrated. The soft tissues appear normal. IMPRESSION: Negative foot. Electronically Reviewed and Signed By MYRON FISHER MD, MD 02/13/20 13:19 Dictating Initials: AL Transcribed Date: 02/09/20 09:09 Transcribe Initials: Name Value Range Interpretation Code Description Data Zarina rce(s) Supporting Document(s) ID Date Data Source [id number] 02/07/2020 02:21:15 PM EDT [facility] Name Value Range Interpretation Code Description Data Zarina rce(s) Supporting Document(s) ER Note [facility] WELDYj3iFgQNZtoetY2RNHUnWO1hgho2FZwnG9JdVMZmmfMaOVEuV6ahHHISBBCDYZUqqR0hKCXgMmjQ vYm wEKYbRAUYgVfTrJjZnU6bjwub0yDA7TEQpQofrWN3UoSt3PBZpA1DgFCYuGNRpl9CzHu7+VrA3xiDqpW v9wU8WQ6PAVCtU76wzVx8lYWNheCwciPHm2aBGrrjYa4OiwtaNLBIaSTCRDIzOKPFCG50JZUHYYlDJBV yguc8mk6QpGv3dNipT77/ZrfmxtVVb+2f7/Qiot8HT wCOad8u5rkjYiZdggjIODEeGfIHY2bm33lQWwkJNdPwAI6vTEQrQWi1ZJhW60oZLyoAzIS+W67DIHdpf 6wjWc8+Steve+2Csoy5I3/Haiecvf6/0xfXnXPvtYmAwVrFqFVrlCe22rHJnHKmrYEmn9THAQPDu1jPy7 [file] a9PEqg9eJx7dfHq1+[employer] 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/Dk38ujERJGnJRuoBK6797Ejr/z/dC+0dze6x4jJXxxFkOzlgk1ZMwwfiQZeR [file] 5CvUfvXGS4Ff4+TnL3KBU1cVPnTxnyPeWlEjweJWJPOfs= ID Date Data Source [id number] 01/22/2020 07:49:00 PM EDT [facility] Name Value Range Interpretation Code Description Data Zarina rce(s) Supporting Document(s) Results Summary Normal (applies to non-numeric results) [facility] 1st Trimester Collection Date Normal (applies t o non-numeric results) [facility] 1st Trimester Maternal Normal (applies to n on-numeric results) [facility] Calculated Age At BRIAN 25 yr Normal (applies to non-nu meric results) [facility] Maternal Weight (lbs) 163 lbs Normal (applies to non-nu meric results) [facility] Insulin Dependent Diabetes Normal (applies to n on-numeric results) [facility] Black Race Normal (applies to non-numeric resul ts) [facility] IVF Normal (applies to non-numeric results) [facility] Scan Date Normal (applies to non-numeric results) [facility] Number Of Fetuses 1 Normal (applies to non-numeri c results) [facility] CRL Measure 1 Normal (applies to non-numeric re sults) [facility] Chorions Normal (applies to non-numeric results) [facility] GA On Collection By U/S Scan Normal (applies to non-numeric results) [facility] RESULT: 12,0 NT Normal (applies to non-numeric results) [facility] NT MoM Normal (applies to non-numeric results) [facility] NT Twin B Normal (applies to non-numeric results) [facility] MANOHAR-A 760 ng/mL Normal (applies to non-numeric resul ts) [facility] MANOHAR-A MoM Normal (applies to non-numeric resul ts) [facility] THCG Normal (applies to non-numeric results) [facility] THCG MoM Normal (applies to non-numeric results) [facility] Down Syndrome Screen Risk Est <1/230 Normal (carol lies to non-numeric results) [facility] RESULT: 1/22,000 Down Syndrome Matern Age Risk Normal (applies t o non-numeric results) [facility] Trisomy 18 Screen Risk Est <1/100 Normal (applies to n on-numeric results) [facility] RESULT: <1/50,000 Trisomy 18 Interpretation Normal (applies to no n-numeric results) [facility] Screen negative for Down syndrome. The r isk for trisomy 18 is less than 1%. For neural tube risk assessment, collect specimen between 15,0 and 22,6 (weeks,days) and order MAFP1/AFP Single Marker Screen, Maternal, S. Add'l Comments Normal (applies to non-numeric r esults) [facility] RESULT: Reviewed by Amador Thornton M.D. Recommended Follow Up Normal (applies to non-nu meric results) [facility] Cigarette Smoking Status Normal (applies to non -numeric results) [facility] Prev Down (T21) / Trisomy Preg Normal (applies to non-numeric results) [facility] Initial or repeat testing Normal (applies to no n-numeric results) [facility] Clerical Supervisor Name Normal (applies to non-numeric results) [facility] Clerical Supervisor Code [id number] Normal (applies to non-numeric results) [facility] Clerical Supervisor ID Normal (applies to non-numeric r esults) [facility] Physician Phone Number [phone] Normal (applies to non-n umeric results) [facility] 1STT1 General Test Info Normal (applies to non- numeric results) [facility] This screening provides an estimation of risk, not a diagnosis. Incorrect information may significantly alter results. Risks are adjusted for IVF, donor eggs and frozen embryos. In twin pregnancies with a demise, results may be unreliable. Results are not available for pregnancies with triplets and higher-order multiples. Results are positive when the risk for Down syndrome equals or exceeds 1 in 230, or when the risk for trisomy 18 equals or exceeds 1 in 100. Family history affects risk. If there is a family history of a neural tube defect, chromosome abnormality, or other inherited condition, consider the option of a genetic consultation. For further information, please contact the maternal screening laboratory at . ADDITIONAL INFORMATION This test was developed and its performance characteristics determined by [facility] in a manner consistent with CLIA requirements. This test has not been cleared or approved by the U.S. Food and Drug Administration. Test Performed by: [place] [id number] [employer] Blind Cleaner: Dilip Pina M.D. Ph.D.; CLIA# [id number] ID Date Data Source [id number] 01/21/2020 09:14:00 AM EDT [facility] Name: ROSA MORA : 1995 A ge/Sex: 24F Ordering Provider: Andrew Abel MD Med Rec #: [id number] Reg Status: DEP REF Room #: Date of Service: 01/20/20 Report Number: [id number] cc:Andrew Abel MD; Elenita Anderson MD Send Report To: [id number] US/US Nuchal Translucency Measure Reason for exam: 8 WEEKS GESTATION OF FINDINGS: LMP: = EDC 08/04/20 EGA = 11 wks 6 days Earliest U/S Today = EDC 08/02/20 EGA = 12 wks 1 days Gestation: Single. [place] Rump Length: 54.9 mm = 12 w 1 d EDC 08/02/20 Heart Rate: 165 bpm. Placental Location: Posterior. Presentation: -- Regular Shaped Gestational Sac: Yes Adequate Amniotic Fluid: Yes Yolk Sac: Yes Cervical length: 36 mm NT: 1.2 mm IMPRESSION: Normal nuchal translucency scan. REPORT SIGNATURE ON FILE Reported By: Tae Gonzalez MD <Electronically signed by Carmen Gonzalez MD> 01/21/20 1055 Dictation Date/Time: 01/20/20 1445 Transcribed Date/Time: 01/21/20 0914 [employer] Supervisor: DRU Name Value Range Interpretation Code Description Data Zarina rce(s) Supporting Document(s) ID Date Data Source [id number] 12/18/2019 05:40:[address] [facility] Imaging Services Department Imaging Report [address], [place] [address] %(RAD)RES..mtdd.print.filter("line") Name: ROSA MORA : 1995 Age/Sex: 24F Ordering Provider: JEAN PAUL Laurent Med Rec #: [id number] Reg Status: DEP REF Room #: Date of Service: 12/18/19 Report Number: [id number] cc:Elenita Anderson MD; JEAN PAUL Laurent Send Report To: [id number] US/US OB Follow Up Exam Reason for exam: VIABILITY FINDINGS: Earliest U/S 5w3d = EDC 08-02-20 EGA= 7 wks 3 days Gestation: Single. Gestational sac size: 32.2 x 11.6 x 24.5 mm = 22.8 mm AVw 2d. [place] Rump Length: 12.7 mm = 7w 3d EDC: 08-02-20 Heart Rate: 144 bpm. Placental Location: Undetermined. Presentation: Undetermined. Regular Shaped Gestational Sac: Yes Adequate Amniotic Fluid: Yes Yolk Sac: Yes Cervical length: 58.8 mm No subchorionic hemorrhage. Left corpus luteal cyst measuring 1.5 cm. No torsion. No adnexal mass. No free fluid. Urinary bladder not evaluated. IMPRESSION: Viable intrauterine . Calculated age of 7w 3d. BRIAN 08-02-20 REPORT SIGNATURE ON FILE Reported By: Trev Santamaria DO <Electronically signed by Trev Santamaria DO> 12/19/19 1122 Dictation Date/Time: 12/18/19 1556 Transcribed Date/Time: 12/18/19 1740 [employer] Supervisor: DARELL Name Value Range Interpretation Code Description Data Zarina rce(s) Supporting Document(s) ID Date Data Source [id number] 12/04/2019 09:06:00 PM EDT [facility] Name Value Range Interpretation Code Description Data Zarina rce(s) Supporting Document(s) BLOOD TYPE PATIENT O Positive Normal (applies to non-numer ic results) [facility] ANTIBODY SCREEN NEGATIVE Normal (applies to non-numeric results) [facility] ID Date Data Source [id number] 12/05/2019 07:36:[address] [facility] Imaging Services Department Imaging Report [address] [place] [id number] %(RAD)RES..mtdd.print.filter("line") Name: ROSA MORA: 1995 Age/Sex: 24F Ordering Provider: JEAN PAUL Laurent Med Rec #: [id number] Reg Status: DEP REF Room #: Date of Service: 12/04/19 Report Number: [id number] cc:Elenita Anderson MD; JEAN PAUL Laurent Send Report To: [id number] US/US OB First Trimester Reason for exam: WEEKS OF GESTATION NOT SPECIFIED FINDINGS: LMP: 10/28/19 = EDC 08/03/20 EGA = 5 wks 2 days Earliest U/S Today = EDC 08/02/20 EGA= 5 wks 3 days Gestation: Single. Gestational sac size: 8.1 x 5.3 x 8.0 = 7.1 mm AVERAGE 5 w 3 d [place] Rump Length: -- Heart Rate: None, too early. Regular Shaped Gestational Sac: Yes Adequate Amniotic Fluid: Yes Yolk Sac: Yes pole not identified. There is a left corpus luteal cyst. No torsion. No adnexal mass. No free fluid. Urinary bladder not evaluated. IMPRESSION: Early gestation measuring under six weeks. Gestational sac with yolk sac identified. No pole. Recommend beta hCG level and follow up ultrasound. REPORT SIGNATURE ON FILE Reported By: Trev Santamaria DO <Electronically signed by Trev Santamaria DO> 12/05/19 1027 Dictation Date/Time: 12/04/19 1634 Transcribed Date/Time: 12/05/19 0736 [employer] Supervisor: DRU Name Value Range Interpretation Code Description Data Zarina rce(s) Supporting Document(s) ID Date Data Source [id number] 12/11/2019 06:36:00 PM [facility] Name Value Range Interpretation Code Description Data Zarina rce(s) Supporting Document(s) CF Mutation Result Summary Normal (applies to n on-numeric results) [facility] CF Mutation Result Normal (applies to non-numer ic results) [facility] RESULT: None of the listed mutations wer e detected. CF Mutation Interpretation Normal (applies to n on-numeric results) [facility] Having excluded the listed mutations, th is result decreases the likelihood but does not exclude the possibility that this individual is a carrier of or affected with cystic fibrosis (CF). The degree to which this result reduces the patient's risk depends on the ethnic background and family history of the patient. Because this information was not provided, we are unable to provide a revised risk assessment at this time. The risk that this individual is a carrier of another CF mutation is listed below. Ethnicity Risk (Detection rate, Carrier Freq) Northern (91%, 06/21) Mixed 134 (82%, 06/21) Southern (79%, 06/21) Eastern (77%, 06/26) Ashkenazi Amish 801 (97%, 06/21) Romanian [place] (91%, 06/21) 1338 (81%, ) Croatian 1251 (82%, ) Croatian* 1194 (54%, ) *does not apply to individuals of [place] ancestry These calculations are based on the mutation detection rates and population carrier frequencies noted in the chart and assume no family history of CF. Because there is little information available about the carrier frequency and mutation detection rates for individuals of other ethnicities, we are unable to provide a revised risk assessment for ethnicities other than those listed. If the patient has a family history of CF, contact our laboratory for a revised risk assessment. If there is a suspected diagnosis of CF, correlation between other laboratory tests and clinical history is recommended. Additional genetic testing strategies, such as full gene analysis of the CFTR gene (CFTRZ / CFTR Gene, Full Gene Analysis), should be considered for identifying mutations that are not detected by this assay. Contact the [facility] at for further discussion regarding this option. A genetic consultation may be of benefit. ADDITIONAL INFORMATION An online research opportunity called BrieFix ([employer]), a project of [employer], is available for the recipient of this genetic test. This patient registry collects de-identified genetic and health information to advance the knowledge of genetic variants. [facility] is a collaborator of [employer]. This may not be applicable for all tests. Test results should be interpreted in the context of clinical findings, family history, and other laboratory data. Misinterpretation of results may occur if the information provided is inaccurate or incomplete. Rare polymorphisms exist that could lead to false- negative or false-positive results. If results obtained do not match the clinical findings, additional testing should be considered. Bone Marrow transplants from allogenic donors will interfere with testing. Call [facility] for instructions for testing patients who have received a bone marrow transplant. One or more in silico tools were used to assist in the interpretation of these results. These tools are updated regularly and predictions for a given variant may change. Additionally, the predictability of these tools for the determination of pathogenicity is currently unvalidated. This test was developed and its performance characteristics determined by [facility] in a manner consistent with CLIA requirements. This test has not been cleared or approved by the U.S. Food and Drug Administration. CF Mutation Specimen Normal (applies to non-num danna results) [facility] CF Mutation Method Normal (applies to non-numer ic results) [facility] The multiplex PCR based assay utilizing the sambaash Array platform was used to detect 106 mutations, including the 23 mutations specified in the [employer] (ACMG) standards for population based carrier screening. The mutations are as follows: [id number], [id number], G542X, G85E, R117H, B9829I (TGG>TGA), 621+1G>T, 711+1G>T, V1639Q (C>A), D5394T (C>G), R334W, R347P, A455E, 1717-1G>A, R553X, R560T, G551D, 1898+1G>A, 2184delA, 2789+5G>A, 3120+1G>A, T8020T, 3659delC, 3849+10kbC>T, the deletion of exons 2-3, 296+2T>A, E60X, R75X, 394_395delTT, 405+1G>A, 406-1G>A, E92X, 444delA, 457TAT>G, R117C, Y122X, 574delA, 663delT, G178R, 711+5G>A, 712-1G>T, H199Y, P205S, L206W, 363sbt53, 935delA, 936delTA, sygbkN193, 1078delT, G330X, T338I, R347H, R352Q, Q359K, T360K, 1288insTA, S466X (C>A), S466X (C>G), G480C, Q493X, 1677delTA, C524X, S549N, S549R (T>G), Q552X, A559T, 1811+1.6kbA>G, 1812-1G>A, 1898+1G>T, 1898+1G>C, 1898+5G>T, P574H, 5599shw28, 2043delG, 3800uhi0>A, 5748hnw32uyf2, 2108delA, 2143delT, 2183_2184delAAinsG, 2184insA, R709X, K710X, 2307insA, R764X, Q890X, 2869insG, 3171delC, 7118zyv8, S6889D, W1199T (TGG>TAG), G2181O (C>G), O7962J (C>A), J4410I, A5067E, Y1590A, I5172G, 8839nrw7, I8950X, C2997K (TGG>TAG), 3791delC, I3481R, 3876delA, L3784U, O2924R, 3905insT, and 4016dupT mutations are detected. Poly T determination and confirmatory testing of homozygous results are performed as reflex tests when appropriate. CF Mutation Released By Normal (applies to non- numeric results) [facility] RESULT: Kevin Tanner, Ph.D. Test Perf ormed by: [address] [address] Venetian Blind Cleaner: Dilip Pina M.D. Ph.D.; IA# [id number] ID Date Data Source [id number] 12/11/2019 04:21:00 PM EDT [facility] Name Value Range Interpretation Code Description Data Zarina rce(s) Supporting Document(s) CF Mutation Result Summary Normal (applies to n on-numeric results) [facility] CF Mutation Result Normal (applies to non-numer ic results) [facility] RESULT: None of the listed mutations wer e detected. CF Mutation Interpretation Normal (applies to n on-numeric results) [facility] Having excluded the listed mutations, th is result decreases the likelihood but does not exclude the possibility that this individual is a carrier of or affected with cystic fibrosis (CF). The degree to which this result reduces the patient's risk depends on the ethnic background and family history of the patient. Because this information was not provided, we are unable to provide a revised risk assessment at this time. The risk that this individual is a carrier of another CF mutation is listed below. Ethnicity Risk (Detection rate, Carrier Freq) Northern (91%, 06/21) Mixed 134 (82%, 06/21) Southern 115 (79%, 06/21) Eastern 1127 (77%, 06/26) Ashkenazi Amish 1801 (97%, 06/21) Romanian [place] (91%, 06/21) 1338 (81%, ) Croatian 1251 (82%, ) Croatian* 1194 (54%, ) *does not apply to individuals of [place] ancestry These calculations are based on the mutation detection rates and population carrier frequencies noted in the chart and assume no family history of CF. Because there is little information available about the carrier frequency and mutation detection rates for individuals of other ethnicities, we are unable to provide a revised risk assessment for ethnicities other than those listed. If the patient has a family history of CF, contact our laboratory for a revised risk assessment. If there is a suspected diagnosis of CF, correlation between other laboratory tests and clinical history is recommended. Additional genetic testing strategies, such as full gene analysis of the CFTR gene (CFTRZ / CFTR Gene, Full Gene Analysis), should be considered for identifying mutations that are not detected by this assay. Contact the [facility] at for further discussion regarding this option. A genetic consultation may be of benefit. ADDITIONAL INFORMATION An online research opportunity called BrieFix ([employer]), a project of [employer], is available for the recipient of this genetic test. This patient registry collects de-identified genetic and health information to advance the knowledge of genetic variants. [facility] is a collaborator of [employer]. This may not be applicable for all tests. Test results should be interpreted in the context of clinical findings, family history, and other laboratory data. Misinterpretation of results may occur if the information provided is inaccurate or incomplete. Rare polymorphisms exist that could lead to false- negative or false-positive results. If results obtained do not match the clinical findings, additional testing should be considered. Bone Marrow transplants from allogenic donors will interfere with testing. Call [facility] for instructions for testing patients who have received a bone marrow transplant. One or more in silico tools were used to assist in the interpretation of these results. These tools are updated regularly and predictions for a given variant may change. Additionally, the predictability of these tools for the determination of pathogenicity is currently unvalidated. This test was developed and its performance characteristics determined by [facility] in a manner consistent with CLIA requirements. This test has not been cleared or approved by the U.S. Food and Drug Administration. CF Mutation Specimen Normal (applies to non-num danna results) [facility] CF Mutation Method Normal (applies to non-numer ic results) [facility] The multiplex PCR based assay utilizing the sambaash Array platform was used to detect 106 mutations, including the 23 mutations specified in the [employer] (ACMG) standards for population based carrier screening. The mutations are as follows: [id number], uqjwuV868, G542X, G85E, R117H, Q9345Y (TGG>TGA), 621+1G>T, 711+1G>T, Y7747G (C>A), Z2304A (C>G), R334W, R347P, A455E, 1717-1G>A, R553X, R560T, G551D, 1898+1G>A, 2184delA, 2789+5G>A, 3120+1G>A, V7407J, 3659delC, 3849+10kbC>T, the deletion of exons 2-3, 296+2T>A, E60X, R75X, 394_395delTT, 405+1G>A, 406-1G>A, E92X, 444delA, 457TAT>G, R117C, Y122X, 574delA, 663delT, G178R, 711+5G>A, 712-1G>T, H199Y, P205S, L206W, 635ceo00, 935delA, 936delTA, ainrgD976, 1078delT, G330X, T338I, R347H, R352Q, Q359K, T360K, 1288insTA, S466X (C>A), S466X (C>G), G480C, Q493X, 1677delTA, C524X, S549N, S549R (T>G), Q552X, A559T, 1811+1.6kbA>G, 1812-1G>A, 1898+1G>T, 1898+1G>C, 1898+5G>T, P574H, 0436syh85, 2043delG, 8110sbp8>A, 5938klt13znh2, 2108delA, 2143delT, 2183_2184delAAinsG, 2184insA, R709X, K710X, 2307insA, R764X, Q890X, 2869insG, 3171delC, 3317gmu5, F8744N, K7809B (TGG>TAG), Y5918P (C>G), B6400R (C>A), Q5903F, L7389Z, Y3769U, R9804T, 9141gkg5, R7766X, R7870G (TGG>TAG), 3791delC, J5266L, 3876delA, K4645L, Z7159B, 3905insT, and 4016dupT mutations are detected. Poly T determination and confirmatory testing of homozygous results are performed as reflex tests when appropriate. CF Mutation Released By Normal (applies to non- numeric results) [facility] RESULT: Kevin Tanner, Ph.D. Test Perf ormed by: [place] [address] [employer] Blind Cleaner: Dilip Pina M.D. Ph.D.; CLIA# [id number] ID Date Data Source [id number] 12/11/2019 03:04:00 AM EDT [facility] Name Value Range Interpretation Code Description Data Zarina rce(s) Supporting Document(s) TS ABO result Normal (applies to non-numeric re sults) [facility] TS Rh result Normal (applies to non-numeric res ults) [facility] TS ABS result Normal (applies to non-numeric re sults) [facility] Test Performed By: [facility] [address] [place] [address] Director: Marlen Madera MD ID Date Data Source [id number] 12/09/2019 02:25:00 PM EDT [facility] Name Value Range Interpretation Code Description Data Zarina rce(s) Supporting Document(s) Varicella-Zoster IgG Ab,S res See Note No rmal (applies to non-numeric results) [facility] Presence of detectable Varicella Zoster virus IgG antibodies. Test performed or referred by The [address] [address] ID Date Data Source [id number] 12/09/2019 02:25:00 PM EDT [facility] Name Value Range Interpretation Code Description Data Zarina rce(s) Supporting Document(s) Toxoplasma Ab,IgG result Negative Normal (applies to non -numeric results) [facility] Toxoplasma IgG Value Normal (applies to non-num danna results) [facility] REFERENCE VALUE------ <=9 IU/mL (Negative) 10-11 IU/mL (Equivocal) >=12 IU/mL (Positive) Test Performed by: [place] [address] Venetian Blind Cleaner: Dilip Pina M.D. Ph.D.; CLIA# [id number] ID Date Data Source [id number] 12/09/2019 02:25:00 PM EDT [facility] Name Value Range Interpretation Code Description Data Zarina rce(s) Supporting Document(s) Toxoplasma Ab,IgM Negative Normal (applies to non-numeri c results) [facility] No IgM antibodies to T. gondii detected. Results may be negative in patients with recent infection or who are significantly immunosuppressed. Test Performed by: [place] [id number] Venetian Blind Cleaner: Dilip Pina M.D. Ph.D.; CLIA# [id number] ID Date Data Source [id number] 12/09/2019 02:25:00 PM EDT [facility] Name Value Range Interpretation Code Description Data Zarina rce(s) Supporting Document(s) HBELEC Hemoglobin A2 2.0-3.3 Normal (applies to non-num danna results) [facility] HBELC Hemoglobin F 0.0-0.9 Normal (applies to non-numer ic results) [facility] ADDITIONAL INFORMATIO N This test has been modified from the position description manager's instructions. Its performance characteristics were determined by [facility] in a manner consistent with CLIA requirements. This test has not been cleared or approved by the U.S. Food and Drug Administration. HBELC Hemoglobin A 95.8-98.0 Normal (applies to non-numer ic results) [facility] HBELC Variant Normal (applies to non-numeric resul ts) [facility] REFERENCE VALUE------ No abnormal variants ADDITIONAL INFORMATION This test has been modified from the position description manager's instructions. Its performance characteristics were determined by [facility] in a manner consistent with CLIA requirements. This test has not been cleared or approved by the U.S. Food and Drug Administration. HBELC Interpretation Normal (applies to non-num danna results) [facility] No electrophoretic evidence of abnormal hemoglobin or beta thalassemia. See comment. Comment: These results do not exclude alpha thalassemia. The vast majority of hemoglobin variants and beta thalassemias are excluded, although some rare clinically significant hemoglobin disorders are electrophoretically silent. If otherwise unexplained lifelong/familial symptoms such as hemolysis (i.e. Kurt body hemolytic anemia), microcytosis, erythrocytosis, cyanosis, or hypoxia are present and additional testing is desired, please call the [facility] ( ). If alpha thalassemia is a consideration, alpha globin gene deletion/duplication analysis is available (ATHAL/Alpha-Globin Gene Analysis). Additional sample required. Test Performed by: [place] [address] Venetian Blind Cleaner: Dilip Pina M.D. Ph.D.; CLIA# [id number] ID Date Data Source [id number] 12/08/2019 01:27:00 PM EDT [facility] Name Value Range Interpretation Code Description Data Zarina rce(s) Supporting Document(s) Varicella-Zoster IgG Ab,S res See Note No rmal (applies to non-numeric results) [facility] Presence of detectable Varicella Zoster virus IgG antibodies. Test performed [place] [address] ID Date Data Source [id number] 12/08/2019 01:27:00 PM EDT [facility] Name Value Range Interpretation Code Description Data Zarina rce(s) Supporting Document(s) HBELC Hemoglobin A2 2.0-3.3 Normal (applies to non-nume candice results) [facility] HBELC Hemoglobin F 0.0-0.9 Normal (applies to non-numer ic results) [facility] ADDITIONAL INFORMATIO N This test has been modified from the position description manager's instructions. Its performance characteristics were determined by [facility] in a manner consistent with CLIA requirements. This test has not been cleared or approved by the U.S. Food and Drug Administration. HBELC Hemoglobin A 95.8-98.0 Normal (applies to non-numer ic results) [facility] HBELC Hemoglobin Variant Normal (applies to non -numeric results) [facility] REFERENCE VALUE------ No abnormal variants ADDITIONAL INFORMATION This test has been modified from the position description manager's instructions. Its performance characteristics were determined by [facility] in a manner consistent with CLIA requirements. This test has not been cleared or approved by the U.S. Food and Drug Administration. HBELC Hgb Electroph Interp Normal (applies to n on-numeric results) [facility] No electrophoretic evidence of abnormal hemoglobin or beta thalassemia. See comment. Comment: These results do not exclude alpha thalassemia. The vast majority of hemoglobin variants and beta thalassemias are excluded, although some rare clinically significant hemoglobin disorders are electrophoretically silent. If otherwise unexplained lifelong/familial symptoms such as hemolysis (i.e. Kurt body hemolytic anemia), microcytosis, erythrocytosis, cyanosis, or hypoxia are present and additional testing is desired, please call the [facility] ( ). If alpha thalassemia is a consideration, alpha globin gene deletion/duplication analysis is available (ATHAL/Alpha-Globin Gene Analysis). Additional sample required. Test Performed by: [facility] - [address] [address] Venetian Blind Cleaner: Dilip Pina M.D. Ph.D.; CLIA# [id number] ID Date Data Source [id number] 12/08/2019 01:27:00 PM EDT [facility] Value Range Interpretation Code Description Data Zarina rce(s) Supporting Document(s) Toxoplasma Ab,IgG result Negative Normal (applies to non -numeric results) [facility] Toxoplasma IgG Value Normal (applies to non-num danna results) [facility] REFERENCE VALUE------ <=9 IU/mL (Negative) 10-11 IU/mL (Equivocal) >=12 IU/mL (Positive) Test Performed by: [place] [id number] [employer] Cleaner: Dilip Pina M.D. Ph.D.; CLIA# [id number] ID Date Data Source [id number] 12/08/2019 01:27:00 PM EDT [facility] Value Range Interpretation Code Description Data Zarina rce(s) Supporting Document(s) Toxoplasma Ab,IgM result Negative Normal (applies to non -numeric results) [facility] No IgM antibodies to T. gondii detected. Results may be negative in patients with recent infection or who are significantly immunosuppressed. Test Performed by: [place] [id number] [employer] Cleaner: Dilip Pina M.D. Ph.D.; CLIA# [id number] ID Date Data Source [id number] 12/06/2019 08:28:[facility] Interpretation Code Description Data Zarina rce(s) Supporting Document(s) Lead,Blood (Venous) result <5.0 Normal (applies to n on-numeric results) [facility] ADDITIONAL INFORMATIO N Testing performed by Inductively Coupled Plasma-Mass Spectrometry (ICP-MS). This test was developed and its performance characteristics determined by [facility] in a manner consistent with CLIA requirements. This test has not been cleared or approved by the U.S. Food and Drug Administration. [facility] Patient Street Normal (applies to non-nume candice results) [facility] RESULT: [address], [address] PBDV Patient City Normal (applies to non-numeri c results) [facility] Normal (applies to non-numer ic results) [facility] Zip [address] Normal (applies to non-numeric results) [facility] Patient [facility] Normal (applies to non-nume candice results) [facility] Phone [phone] Normal (applies to non-nume candice results) [facility] Patient Race Normal (applies to non-numeri c results) [facility] Patient Ethnicity Normal (applies to non-n umeric results) [facility] Occupation Normal (applies to non- numeric results) [facility] Patient Employer Normal (applies to non-nu meric results) [facility] RESULT: MAXIMIZING LIVING CHOICE PBDV Guardian Name,First Normal (applies to non -numeric results) [facility] Guardian Name,Last Normal (applies to non- numeric results) [facility] Name Normal (applies to non-numer ic results) [facility] [place] Normal (applies to non-num danna results) [facility] Provider [facility] Normal (applies to non-numer ic results) [facility] State Normal (applies to non-nume candice results) [facility] Zip [address] Normal (applies to non-numeri c results) [facility] Phone [phone] Normal (applies to non-num danna results) [facility] Submitting Lab Phone [phone] Normal (applies to non-numeric results) [facility] Test Performed by: [facility] [address] [place] [address] Venet[employer] Blind Cleaner: Dilip Pina M.D. Ph.D.; CLIA# [id number] ID Date Data Source [id number] 12/06/2019 05:58:00 PM EDT [facility] Name Value Range Interpretation Code Description Data Zarina rce(s) Supporting Document(s) Lead,Blood (Venous) result <5.0 Normal (applies to n on-numeric results) [facility] ADDITIONAL INFORMATIO N Testing performed by Inductively Coupled Plasma-Mass Spectrometry (ICP-MS). This test was developed and its performance characteristics determined by [facility] in a manner consistent with CLIA requirements. This test has not been cleared or approved by the U.S. Food and Drug Administration. [facility] Patient Street Normal (applies to non-nume candice results) [facility] RESULT: [address] [facility] PBDV Patient City Normal (applies to non-numeri c results) [facility] State Normal (applies to non-numer ic results) [facility] Patient Zip [address] Normal (applies to non-numeric results) [facility] Patient [facility] Normal (applies to non-nume candice results) [facility] Phone [phone] Normal (applies to non-nume candice results) [facility] Patient Race Normal (applies to non-numeri c results) [facility] Patient Ethnicity Normal (applies to non-n umeric results) [facility] Occupation Normal (applies to non- numeric results) [facility] Patient Employer Normal (applies to non-nu meric results) [facility] RESULT: MAXIMIZING LIVING CHOICE PBDV Guardian Name,First Normal (applies to non -numeric results) [facility] Guardian Name,Last Normal (applies to non- numeric results) [facility] Provider Name Normal (applies to non-numer ic results) [facility] Street Normal (applies to non-num danna results) [facility] PBDV Provider City Normal (applies to non-numer ic results) [facility] PBDV Provider State Normal (applies to non-nume candice results) [facility] PBDV Provider Zip [address] Normal (applies to non-numeri c results) [facility] PBDV Provider Phone [phone] Normal (applies to non-num danna results) [facility] PBDV Submitting Lab Phone [phone] Normal (applies to non-numeric results) [facility] Test Performed by: [facility] [address] [place] [address] Venet[employer] Blind Cleaner: Dilip Pina M.D. Ph.D.; CLIA# [id number] ID Date Data Source [id number] 12/05/2019 08:12:00 AM [facility] Name Value Range Interpretation Code Description Data Zarina rce(s) Supporting Document(s) TS ABO result Normal (applies to non-numeric resul ts) [facility] TS Rh result Normal (applies to non-numeric result s) [facility] TS ABS result Normal (applies to non-numeric resul ts) [facility] ID Date Data Source [id number] 12/05/2019 07:13:00 AM EDT [facility] Name Value Range Interpretation Code Description Data Zarina rce(s) Supporting Document(s) Hepatitis C Virus Ab result Nonreactive Norm al (applies to non-numeric results) [facility] Test Performed By: [facility] [address] [place] [address] Director: Marlen Madera MD ID Date Data Source [id number] 12/05/2019 07:13:00 AM EDT [facility] Name Value Range Interpretation Code Description Data Zarina rce(s) Supporting Document(s) Hep Bs Ag result T-Test Nonreactive Normal (applies to non -numeric results) [facility] Test Performed By: [facility] [address] [place] [address] Director: Marlen Madera MD ID Date Data Source [id number] 12/05/2019 07:13:00 AM EDT [facility] Value Range Interpretation Code Description Data Zarina rce(s) Supporting Document(s) HIV Screen result Nonreactive Normal (applies to non-numer ic results) [facility] Test Performed By: [place] [address] Director: Marlen Madera MD ID Date Data Source [id number] 12/05/2019 07:13:00 AM EDT [facility] Value Range Interpretation Code Description Data Zarina rce(s) Supporting Document(s) Syphilis Serology result Nonreactive Normal (applies to non-numeric results) [facility] Test Performed By: [place] [address] Director: Marlen Madera MD ID Date Data Source [id number] 12/05/2019 07:13:00 AM EDT [facility] Value Range Interpretation Code Description Data Zarina rce(s) Supporting Document(s) Rubella Ab,IgG result >10.0 Normal (applies to non-nu meric results) [facility] Test Performed By: [place] [address] Director: Marlen Madera MD Interpretation of Results Less than 5.0 IU/mL - Negative for IgG antibodies to Rubella virus 5.0 - 9.9 IU/mL - Equivocal. Suggest repeat testing on new sample 10.0 IU/mL or greater - Positive for IgG antibodies to Rubella virus ID Date Data Source [id number] 12/04/2019 08:23:00 PM EDT [facility] Value Range Interpretation Code Description Data Zarina rce(s) Supporting Document(s) Hep C Ab-T Test Nonreactive Normal (applies to non-numeric results) [facility] Test Performed By: [place] [address] Director: Marlen Madera MD ID Date Data Source [id number] 12/04/2019 08:23:00 PM EDT [facility] Value Range Interpretation Code Description Data Zarina rce(s) Supporting Document(s) Hep Bs Ag Result T-Test Nonreactive Normal (applies to non -numeric results) [facility] Test Performed By: [facility] [address] [place] [address] Director: Marlen Madera MD ID Date Data Source [id number] 12/04/2019 08:23:00 PM EDT [facility] Value Range Interpretation Code Description Data Zarina rce(s) Supporting Document(s) HIV 1/2 Ab p24 Ag Screen Nonreactive Normal (applies to non-numeric results) [facility] Test Performed By: [facility] [address] [place] [address] Director: Marlen Madera MD ID Date Data Source [id number] 12/04/2019 08:23:00 PM EDT [facility] Value Range Interpretation Code Description Data Zarina rce(s) Supporting Document(s) Syphilis Serology Nonreactive Normal (applies to non-numer ic results) [facility] Test Performed By: [facility] [address] [place] [address] Director: Marlen Madera MD ID Date Data Source [id number] 12/04/2019 08:23:00 PM EDT [facility] Value Range Interpretation Code Description Data Zarina rce(s) Supporting Document(s) Rubella Ab,IgG >10.0 Normal (applies to non-numeric r esults) [facility] Test Performed By: [facility] [address] [place] [address] Director: Marlen Madera MD Interpretation of Results Less than 5.0 IU/mL - Negative for IgG antibodies to Rubella virus 5.0 - 9.9 IU/mL - Equivocal. Suggest repeat testing on new sample 10.0 IU/mL or greater - Positive for IgG antibodies to Rubella virus ID Date Data Source [id number] 12/04/2019 03:27:00 PM EDT [facility] Value Range Interpretation Code Description Data Zarina rce(s) Supporting Document(s) Thyroid Stimulate Hormone TSH 0.358-3.74 No rmal (applies to non-numeric results) [facility] ID Date Data Source [id number] 12/04/2019 03:27:00 PM EDT [facility] Name Value Range Interpretation Code Description Data Zarina rce(s) Supporting Document(s) Beta HCG,Quantitative 4614 mIU/mL Normal (applies to non-n umeric results) [facility] Non-preganant:0-5 mIU/mL 0. 2- Week: 5-50 mIU/mL 1-2 Weeks: 50-500 mIU/mL 2-3 Weeks: 100-5,000 mIU/mL 3-4 Weeks: 500-10,000 mIU/mL 4-5 Weeks: 1,000-50,000 mIU/mL 5-6 Weeks: 10,000-100,000 mIU/mL 6-8 Weeks: 15,000-200,000 mIU/mL 2-3 Months: 10,000-100,000 mIU/mL ID Date Data Source [id number] 12/04/2019 02:40:00 PM EDT [facility] Name Value Range Interpretation Code Description Data Zarina rce(s) Supporting Document(s) White Blood Count 3.5-10.5 Normal (applies to non-numeri c results) [facility] Red Blood Count 3.90-5.00 Normal (applies to non-numeric results) [facility] Hemoglobin 12.0-15.5 Normal (applies to non-numeric resul ts) [facility] Hematocrit 34.9-44.5 Normal (applies to non-numeric resul ts) [facility] Mean Corpuscular Volume 81.2-95.1 Normal (applies to non- numeric results) [facility] Mean Corpuscular Hgb 25.6-32.2 Normal (applies to non-num danna results) [facility] Mean Corpuscular Hgb Conc 32.0-36.0 Normal (applies to no n-numeric results) [facility] Red Cell Distribution Width 11.9-15.5 Normal (appli es to non-numeric results) [facility] Platelet Count 214 x10 3/uL 150-450 Normal (applies to non-numeric results) [facility] Mean Platelet Volume 9.4-12.4 Normal (applies to non-num danna results) [facility] Neutrophils% (Auto) 31.0-71.0 Normal (applies to non-nume candice results) [facility] Lymphocytes% (Auto) 20.0-55.0 Normal (applies to non-nume candice results) [facility] Monocytes% (Auto) 4.0-12.0 Normal (applies to non-numeri c results) [facility] Eosinophils% (Auto) 1.0-8.0 Normal (applies to non-nume candice results) [facility] Basophils% (Auto) 0.0-2.0 Normal (applies to non-numeri c results) [facility] Immature Granulocytes% (Auto) 0.0-2.0 Normal (carol lies to non-numeric results) [facility] Neutrophils# (Auto) 1.50-6.20 Normal (applies to non-nume candice results) [facility] Lymphocytes# (Auto) 1.20-4.00 Normal (applies to non-nume candcie results) [facility] Monocytes# (Auto) 0.00-0.90 Above high normal [facility] Eosinophils# (Auto) 0.00-0.50 Normal (applies to non-nume candice results) [facility] Basophils# (Auto) 0.00-0.20 Normal (applies to non-numeri c results) [facility] Immature Granulocytes# (Auto) 0.00-7.00 No rmal (applies to non-numeric results) [facility] ID Date Data Source [id number] 12/08/2019 12:45:00 PM EDT [facility] Name Value Range Interpretation Code Description Data Zraina rce(s) Supporting Document(s) Ethanol,UDSPAIN Cutoff=0.020 Normal (applies to non-numeri c results) [facility] Amphetamine,UDSPAIN Vjqjvi=7054 Normal (applies to non-num danna results) [facility] Amphetamine test includes Amphetamine an d Methamphetamine. Barbiturates, UDSPAIN Tjjtyu=321 Normal (applies to non-nu meric results) [facility] Benzodiazepines,UDSPAIN Gayyuc=695 Normal (applies to non- numeric results) [facility] Cannabinoids, UDSPAIN Cutoff=20 Very abnormal (applies to non-numeric units [facility] Carboxy THC GC/MS Conf 794 ng/mL Cutoff=10 01 Cocaine, UDSPAIN Jhdyhv=024 Normal (applies to non-numeric results) [facility] Opiates,UDSPAIN Qeceos=496 Normal (applies to non-numeric results) [facility] Opiate test includes Codeine, Morphine, Hydromorphone, Hydrocodone. Oxyco/Oxymorphone, UDSPAIN Afurrc=289 Normal (applie s to non-numeric results) [facility] Test includes Oxycodone and Oxymorphone Phencyclidine, UDSPAIN Cutoff=25 Normal (applies to non-n umeric results) [facility] Methadone, UDSPAIN Ytqjot=499 Normal (applies to non-numer ic results) [facility] Propoxyphene, UDSPAIN Qpvsxk=549 Normal (applies to non-nu meric results) [facility] Meperidine, UDSPAIN Suirzr=481 Normal (applies to non-nume candice results) [facility] This test was developed and its performa nce characteristics determined by [facility]. It has not been cleared or approved by the Food and Drug Administration. Tramadol,UDSPAIN Pdnbed=648 Normal (applies to non-numeric results) [facility] Creatinine, UDSPAIN 20.0-300.0 Normal (applies to non-nume candice results) [facility] Performed at: RN - [facility] [address] [id number] Venet[employer] Blind Cleaner: Ade Roca MD, Phone: [phone] ID Date Data Source [id number] 12/04/2019 09:55:00 AM EDT [facility] Name Value Range Interpretation Code Description Data Zarina rce(s) Supporting Document(s) Urine Culture [facility] ospital ID Date Data Source [id number] 12/02/2019 11:13:00 PM EDT [facility] Name Value Range Interpretation Code Description Data Zarina rce(s) Supporting Document(s) Color,Urine Yellow Normal (applies to non-numeric resu lts) [facility] Clarity,Urine Clear Normal (applies to non-numeric re sults) [facility] Specific Willet,Urine 1.001-1.030 Normal (applies to non- numeric results) [facility] PH,Urine 5.0-8.0 Normal (applies to non-numeric resul ts) [facility] Protein,Urine Negative Normal (applies to non-numeric re sults) [facility] Glucose,Urine (UA) Negative Normal (applies to non-numer ic results) [facility] Ketones,Urine Negative Normal (applies to non-numeric re sults) [facility] Blood,Urine Negative Normal (applies to non-numeric resu lts) [facility] Bilirubin,Urine Negative Normal (applies to non-numeric results) [facility] Urobilinogen,Urine Norm 0.2-1 Normal (applies to non-numer ic results) [facility] Leukocyte Esterase,Urine Negative Normal (applies to non -numeric results) [facility] Nitrite,Urine Negative Normal (applies to non-numeric re sults) [facility] WBC,URINE 0-10 Normal (applies to non-numeric resul ts) [facility] RBC,Urine 0-2 Normal (applies to non-numeric resul ts) [facility] Hyaline Casts,Ur None Seen Normal (applies to non-numeric results) [facility] Bacteria,Urine None Seen Fu [facility] Epithelial Cell,Ur None-Few [facility] Mucus,Urine None Seen [facility] ID Date Data Source [id number] 12/02/2019 11:09:00 PM EDT [facility] Name Value Range Interpretation Code Description Data Zarina rce(s) Supporting Document(s) Bupren Scrn,Ur wRfx LCI SO res Negative N ormal (applies to non-numeric results) [facility] Therapeutic Drug Threshold for Buprenorp courtney: 5 ng/mL All positive findings are presumptive and unconfirmed. Confirmation of positive Buprenorphine is automatically reflexed and sent to reference laboratory. Unconfirmed results must not be used for non-medical purposes (i.e. pre-employment and legal purposes) ID Date Data Source [id number] 12/05/2019 03:53:00 PM EDT [facility] Name Value Range Interpretation Code Description Data Zarina rce(s) Supporting Document(s) Chlamydia-Thin Prep Negative Normal (applies to non-nume candice results) [facility] GC- Thin Prep Negative Normal (applies to non-numeric re sults) [facility] Methodology: Second generation nucleic a rehana amplification. 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 Clinical History (as provided on requisition) LMP: 10/30/2019Findings: Previous Pap/Biopsy: not provided Source of Specimen: endocerv ical/exocervicalClinical Diagnosis: SCREENING, low risk (Thin Prep) Cytologic FindingsSubmitted: Pap Smear, Thin PrepAdequacy: Satisfactory for evaluation; transformation zone present DIAGNOSIS: Negative for intraepithelial lesion or malignancy Screened by: JUSTIN Gonzalez Signed (signature on file) Luisa Vila CT 12/04/19 1657 END OF REPORT Name Value Range Interpretation Code Description Data Zarina rce(s) Supporting Document(s) ID Date Data Source [id number] 10/21/2019 04:05:[address] [facility] Imaging Services Department Imaging Report [address] [address] %(RAD)RES..mtdd.print.filter("line") Name: ROSA MORA : 1995 Age/Sex: 24F Ordering Provider: JEAN PAUL Laurent Med Rec #: [id number] Reg Status: DEP REF Room #: Date of Service: 10/21/19 Report Number: [id number] cc:Elenita Anderson MD; JEAN PAUL Laurent Send Report To: [id number] US/US Pelvis (Not ) [employer]AB[employer]IC STRETCHER Reason for exam: COMPLEX CYST OF OVARY Comparison is made to 09/01/2019 FINDINGS: Uterus measures 9.2 x 4.0 x 5.6 cm. Endometrium is within normal limits measuring 8 mm. Right ovary measures 3.6 x 2.8 x 3.7 cm. Left ovary measures 2.7 x 3.0 x 4.2 cm. No free fluid or torsion is identified. IMPRESSION: Unremarkable pelvic sonogram. Previously noted right ovarian cyst is no longer visualized. REPORT DICTATED BY TAE RODRIGUEZ, REVIEWED AND SIGNED BY DR. GONZALEZ REPORT SIGNATURE ON FILE Reported By: Tae Gonzalez MD <Electronically signed by Carmen Gonzalez MD> 10/22/19 0913 Dictation Date/Time: 10/21/19 1503 Transcribed Date/Time: 10/21/19 1605 [employer] Supervisor: NEIL Name Value Range Interpretation Code Description Data Zarina rce(s) Supporting Document(s) ID Date Data Source [id number] 09/03/2019 05:34:00 PM EDT [facility] Name Value Range Interpretation Code Description Data Zarina rce(s) Supporting Document(s) Beta HCG,Quantitative Normal (applies to non-nu meric results) [facility] Non-preganant:0-5 mIU/mL 0. 2- Week: 5-50 mIU/mL 1-2 Weeks: 50-500 mIU/mL 2-3 Weeks: 100-5,000 mIU/mL 3-4 Weeks: 500-10,000 mIU/mL 4-5 Weeks: 1,000-50,000 mIU/mL 5-6 Weeks: 10,000-100,000 mIU/mL 6-8 Weeks: 15,000-200,000 mIU/mL 2-3 Months: 10,000-100,000 mIU/mL ID Date Data Source [id number] 09/03/2019 09:43:00 AM EDT [facility] spital Procedure Performed By: [facility] [address] [place] [address] Director: Trenton Madera MD QUANTITY: >100,000/mL {STREP AGALACTIAE - (GROUP B)} STREP AGALACTIAE - (GROUP B)SCT Name Value Range Interpretation Code Description Data Zarina rce(s) Supporting Document(s) ID Date Data Source [id number] 09/03/2019 09:43:00 AM EDT [facility] spital Procedure Performed By: [facility] [address] [place] [address] Director: Trenton Madera MD QUANTITY: >100,000/mL {STREP AGALACTIAE - (GROUP B)} STREP AGALACTIAE - (GROUP B)SCT Name Value Range Interpretation Code Description Data Zarina rce(s) Supporting Document(s) Vancomycin Susceptible. Indicates for microbiol ogy susceptibilities only. [facility] Levofloxacin Susceptible. Indicates for m icrobiology susceptibilities only. [facility] Linezolid Susceptible. Indicates for microbiol ogy susceptibilities only. [facility] Moxifloxacin Susceptible. Indicates for m icrobiology susceptibilities only. [facility] Penicillin-G Susceptible. Indicates for m icrobiology susceptibilities only. [facility] ID Date Data Source [id number] 09/03/2019 09:40:00 AM EDT [facility] Procedure Performed By: [facility] [address] [place] [address] Director: Trenton Madera MD Name Value Range Interpretation Code Description Data Zarina rce(s) Supporting Document(s) Urine Culture [facility] ospital ID Date Data Source [id number] 09/03/2019 09:40:00 AM EDT [facility] Procedure Performed By: [facility] [address] [place] [address] Director: Trenton Madera MD Name Value Range Interpretation Code Description Data Zarina rce(s) Supporting Document(s) Vancomycin Susceptible. Indicates for microbiol ogy susceptibilities only. [facility] Levofloxacin Susceptible. Indicates for m icrobiology susceptibilities only. [facility] Linezolid Susceptible. Indicates for microbiol ogy susceptibilities only. [facility] Moxifloxacin Susceptible. Indicates for m icrobiology susceptibilities only. [facility] Penicillin-G Susceptible. Indicates for m icrobiology susceptibilities only. [facility] ID Date Data Source [id number] 09/01/2019 06:07:00 PM EDT [facility] Name Value Range Interpretation Code Description Data [facility] rce(s) Supporting Document(s) Color,Urine Colorl-Dk Y Normal (applies to non-numeric res ults) [facility] Clarity,Urine Clear Normal (applies to non-numeric re sults) [facility] Specific Willet,Urine 1.005-1.030 Normal (applies to non- numeric results) [facility] pH,Urine 5.0-8.0 Normal (applies to non-numeric resul ts) [facility] Protein,Urine Negative Normal (applies to non-numeric re sults) [facility] Glucose,Urine Negative Normal (applies to non-numeric re sults) [facility] Ketones,Urine Negative Normal (applies to non-numeric re sults) [facility] Blood,Urine Negative Normal (applies to non-numeric resu lts) [facility] Bilirubin,Urine Negative Normal (applies to non-numeric results) [facility] Urobilinogen,Urine 0.2-1.0 Normal (applies to non-numer ic results) [facility] Leukocyte Esterase,Urine Negative Normal (applies to non -numeric results) [facility] Nitrite,Urine Negative Normal (applies to non-numeric re sults) [facility] RBC,Urine None Seen Normal (applies to non-numeric resul ts) [facility] WBC,Urine None Seen Fu [facility] Casts,Urine None Seen Normal (applies to non-numeric resu lts) [facility] Squamous Cells,Urine None Seen [facility] Bacteria,Urine None Seen [facility] ital ID Date Data Source [id number] 09/01/2019 07:20:[address] [facility] Imaging Services Department Imaging Report [address], [place] [address] %(RAD)RES..mtdd.print.filter("line") Name: ROSA MORA : 1995 Age/Sex: 24F Ordering Provider: JEAN PAUL Laurent Med Rec #: [id number] Reg Status: DEP REF Room #: Date of Service: 09/01/19 Report Number: [id number] cc:Elenita Anderson MD; JEAN PAUL Laurent Send Report To: [id number] US/US Pelvis (Not ) FABRIC STRETCHER Reason for exam: PELVIC PAIN Comparison is made to 12/23/2018 FINDINGS: The uterus is mildly heterogeneous measuring 9.3 3.4 x 5.4 cm. No discrete myometrial mass is demonstrated. The endometrium measures 7 mm which is thickened for a menstruating female. The right ovary measures 7.2 x 4 x 6 cm with a thick walled possibly resolving complex cyst measuring 2.9 x 1.5 x 2.5 cm. Other smaller follicle are noted andclinical correlation is advised for the need for follow up imaging. The left ovary measures 3.1 x 2.8 x 4 cm with a heterogeneous echotexture without discrete solid or cystic mass demonstrated. There is no free fluid demonstrated on the current study. Survey of the urinarybladder does not demonstrate a discrete bladder mass. IMPRESSION: Findings suggest what may represent a resolving complex cyst in the right ovary. Clinical correlation is advised if need for follow up imaging. Time portable performed: Fluoroscopy time in seconds: Number of Exposures: Contrast Agent in ml: Method of Administration: REPORT SIGNATURE ON FILE Reported By: Myron Fisher MD <Electronically signed by Myron Fisher MD> 09/02/19 0612 Dictation Date/Time: 09/01/19 170 Transcribed Date/Time: 09/01/19 192 [employer] Supervisor: NEIL Name Value Range Interpretation Code Description Data Zarina rce(s) Supporting Document(s) ID Date Data Source [id number] 07/31/2019 04:53:00 PM EST [facility] Name Value Range Interpretation Code Description Data Zarina rce(s) Supporting Document(s) INFLUENZA A Negative Negative [facility] Test Methodology: Isothermal Nucleic Aci d Amplification INFLUENZA B Negative Negative [facility] Test Methodology: Isothermal Nucleic Aci d Amplification ID Date Data Source [id number] 07/31/2019 04:53:00 PM EST [facility] Physician DocumentationClaxton-Jovani Glass edical CenterName: Rosa BriggsAge: 24 yrsSex: FemaleDOB: 1995MRN: [id number] Date: 07/31/2019Time: 15:00Account#: [id number] 5APrivate MD: Yun Anderson Physician Navin Jacksonposition Summary:07/31/19 16:33Discharge OrderedLocation: Home Self Care brProblem: new brSymptoms: are unchanged brCondition: Stable brDiagnosis- Acute serous otitis media, left ear brFollowup: br- With: Emergency Department- When: As needed- Reason:Followup: br- With: Dar Garsia MD- When: Upon discharge from the Emergency Department- Reason:Discharge Instructions:- Discharge Summary Sheet br- EARWAX REMOVAL brForms:- Medication Reconciliation br- Medication Reconciliation Form - 2nd Copy brPrescriptions:- Guaifenesin- take 5 milliliters by ORAL route every 8 hours As needed as brneeded; 60 milliliter; Refills: 0, Product Selection PermittedHPI:07/514:54 This 24 yrs old White Female presents to ER via Private Vehicle with brcomplaints of Productive Cough.16:37 24-year-old female presents with complaint of 4 days of nonproductive brcough and worsening left-sided ear and jaw pain. Patient states thatshe had history of tube placement as a child and been followed by ENTuntil 2 or 3 years ago when she was lost to follow-up. 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 Xulane 150-35 mcg/24 hr transdermal ptwk 1 patch once wkly2. Cymbalta 60 mg oral cpDR 1 cap once daily3. Vitamin D Oral daily- PMHx: HEADACHES;- PSHx: Ear Tubes; Tonsillectomy;- Immunization history: Flu vaccine is not up to date.- Social history: Smoking status: Patient states was never smoker of[employer]. ETOH status Uses ETOH Occasionally.- Advance Directives:: None.ROS:16:38 ENT: Positive for ear pain. Respiratory: Positive for cough. All brother systems are negative .Exam:16:38 Cardiovascular: Regular rate and rhythm with a normal S1 and S2. No brgallops, murmurs, or rubs. Normal PMI, no JVD. No pulse deficits.Abdomen/GI: Soft, non-tender, with normal bowel sounds. Nodistension. No guarding or rebound. No evidence of tendernessthroughout.16:38 Skin: Warm, dry with normal turgor. Normal color with no rashes, nolesions, and no evidence of cellulitis. MS/ Extremity: Pulses equal,no cyanosis. Neurovascular intact. Full, normal range of motion.Neuro: Awake and alert, GCS 15, oriented to person, place, time, andsituation. Cranial nerves II-XII grossly intact. Motor strength 5/5in all extremities. Sensory grossly intact. Cerebellar exam normal.Normal gait.16:38 ENT: Ear canal(s): cerumen impaction, erythema, that is moderate,that is severe, of the left canal, Posterior pharynx: no acutechanges, erythema, is not appreciated, exudate, is not appreciated,Breath odor: is normal.16:38 Respiratory: the patient does not display signs of respiratorydistr ess, Respirations: shallow respirations, Breath sounds: noacute changes, wheezing, that is mild.Vital Signs:15:07 BP 116 / 70; Pulse 77; Resp 16; Temp 97.8(O); Pulse Ox 98% on R/A; ji8Ammpni 65 kg; Pain 10/10;16:49 BP 133 / 74; Pulse 74; Resp 13; Temp 98.1; Pulse Ox 98% ; Pain 0510; wd116:53 Pain 4; wd1MDM:15:54 Patient medically screened. br16:40 Data reviewed: vital signs, nurses notes. ED course: 24-year-old with brnonproductive cough 4 days companied by left ear pain that isworsening. Physical exam indicates otitis media and cerumen impactionand left ear greater than right. Patient has appointment with ENT andas such will be discharged prior to flu swab results being madeavailable. Patient contacted her home with positive. Returnprecautions discussed with patient regarding fever and pain. Patientand significant other verbalized understanding and agreement withplan.07/515:16 Order name: Influenza A B Profile brDispensed Medications:16:32 Drug: Albuterol-Ipratropium 3 ml [ipratropium- albuterol 0.5 mg-3 wd1mg(2.5 mg base)/3 mL nebulization soln (3 mL)] Route: Nebulizer;16:52 Follow up: Response: No adverse reaction wd116:32 Drug: ketorolac 30 mg Route: IM; Site: right deltoid; wd116:53 Follow up: Pain 10 Adult yo6Bzgxedtgex:Dispatcher [employer] Yael Orourke RN RN jy2XkzqsemsKalyani sears RN RN [id number] matias MD MD brCorrections: (The following items were deleted from the chart)16:35 16:33 Acute reactive otitis externa, left ear br br Name Value Range Interpretation Code Description Data Zarina rce(s) Supporting Document(s) ID Date Data Source [id number] 07/31/2019 04:53:00 PM EST [facility] Nurse's NotesClaxAPI Healthcare terName: Rosa MoraAge: 24 yrsSex: FemaleDOB: 1995MRN: [id number] Date: 07/31/2019Time: 15:00Account#: [id number] 5APrivate MD: Elenita AndersonDiagnosis: Acute serous otitis media, left earPresentation:07/514:04 Presenting complaint: Patient states: cough and ear pain x 1 week. en6Oqjxjsaivve Screening: Patient denies exposure to infectious person.Patient denies travel to [place] or affected areas in the 14 daysbefore illness onset. Patient positive for the following Coronavirusassociated symptoms: cough, chills, body aches. Communicable DiseaseScreen: Negative for fever>/= 100 degrees Fahrenheit. Communicabledisease screen is negative.15:04 Acuity: Triage 4 sd215:04 Method Of Arrival: Private Vehicle sd215:05 Acuity Assignment: Triage 4 gy7Efwkhl Assessment:15:05 General: Appears uncomfortable, well nourished, well groomed, il3Kaudynps is appropriate for age, cooperative. Sepsis Screening:(1)Signs/symptoms infection No. Pain: Complains of pain in back,chest and abdomen Pain currently is 10 out of 10 on a pain scale.Quality of pain is described as aching. PSS-3 Now I'm going to askyou some questions that we ask everyone treated here, no matter whatproblem they are here for. It is part of the hospital's policy and ithelps us to make sure we are not missing anything important. Over thepast 2 weeks, have you felt down, depressed, or hopeless? No. Overthe past 2 weeks, have had thoughts of killing yourself? No. In yourlifetime, have you ever attempted to kill yourself? No. Derm: Skin ispink, warm & dry. normal. EENT: Reports pain in left ear and lefttemple. Neuro: Level of Consciousness is awake, alert, Oriented toperson, place, time, Reports headache. Respiratory: Airway is patentRespiratory effort is even, unlabored, Respiratory pattern isregular, symmetrical, Reports cough that is persistent. GI: Reportsnausea, vomiting. 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 Xulane 150-35 mcg/24 hr transdermal ptwk 1 patch once wkly2. Cymbalta 60 mg oral cpDR 1 cap once daily3. Vitamin D Oral daily- PMHx: HEADACHES;- PSHx: Ear Tubes; Tonsillectomy;- Immunization history: Flu vaccine is not up to date.- Social history: Smoking status: Patient states was never smoker of[employer]. ETOH status Uses ETOH Occasionally.- Advance Directives:: None.Screenin:37 Abuse screen: Denies threats or abuse. Denies injuries from another. of6Mmzidvkykcb screening: No deficits noted. Offer of HIV testing:patient was previously offered screening. Fall Risk None identified.Assessment:15:34 Pain: Complains of pain in nose and left cheek Pain currently is 10 wd1out of 10 on a pain scale. Scaled used was Verbal Pain began 2-3 daysago. General: Appears in no apparent distress, Behavior iscooperative. EENT: Reports nasal congestion nasal discharge. Neuro:Level of Consciousness is awake, alert, Oriented to person, place,time, Curing Press Operator are equal bilaterally Moves all extremities. Respiratory:Airway is patent Respiratory effort is even, unlabored, Respiratorypattern is regular, Breath sounds are clear bilaterally. Reportscough that is productive, since week. GI: Reports nausea.Vital Signs:15:07 BP 116 / 70; Pulse 77; Resp 16; Temp 97.8(O); Pulse Ox 98% on R/A; ci7Gbghum 65 kg; Pain 10/10;16:49 BP 133 / 74; Pulse 74; Resp 13; Temp 98.1; Pulse Ox 98% ; Pain 05/10; wd116:53 Pain 4/10; wd1ED Course:15:01 Patient arrived in ED. sd215:01 Elenita Anderson MD is Private Physician. sd215:05 Triage completed. sd215:16 Willard Jackson MD is Attending Physician. br15:37 Bed in low position. Verbal reassurance given. wd116:25 Nasal Swab Collected by Nurse. ef116:32 Dar Garsia MD is Referral Physician. br16:52 No Physician assisted procedures completed. mr2Jmpjwodpceuf Medications:16:32 Drug: Albuterol-Ipratropium 3 ml [ipratropium-albuterol 0.5 mg-3 wd1mg(2.5 mg base)/3 mL nebulization soln (3 mL)] Route: Nebulizer;16:52 Follow up: Response: No adverse reaction wd116:32 Drug: ketorolac 30 mg Route: IM; Site: right deltoid; wd116:53 Follow up: Pain 4/10 Adult kt2Yarvhvz:16:33 Discharge ordered by . br16:49 Disposition: Discharged to home wd116:49 Condition: stable.16:49 Instructed on discharge instructions, follow up and referral plans.Demonstrated understanding of instructions.16:49 Prescriptions given X 1.16:49 Discharge Assessment: Patient verbalized understanding of dispositioninstructions. Patient has no functional deficits.16:53 Patient left the ED. mc4Lpjhiprptv:Yael Posey RN RN ax3PnhbcgzqKalyani sears RN RN wr6BrvhehLisa Capone RN RN tt8WofpurcWillard matias MD MD br Name Value Range Interpretation Code Description Data Zarina rce(s) Supporting Document(s) ID Date Data Source [id number] 06/24/2019 09:34:00 AM EST [facility] [address], [place] [address] %(RAD)RES..mtdd.print.filter("line") Name: ROSA MORA : 1995 Age/Sex: 24F Ordering Provider: Marianne Aguero MD Med Rec #: [id number] Reg Status: [facility] Room #: Date of Service: 06/23/19 Report Number: [id number] cc:Elenita Anderson MD Send Report To: [id number] XRP/XR Ankle Lt 2 View Reason for exam: injury FINDINGS/IMPRESSION: There is no evidence of fracture or dislocation. No significant degenerative changes. No joint effusion. Time portable performed: Fluoroscopy time in seconds: Number of Exposures: Contrast Agent in ml: Method of Administration: REPORT SIGNATURE ON FILE Reported By: Ad Lai MD <Electronically signed by Ad Lai MD> 06/24/19 1551 Dictation Date/Time: 06/23/19 1722 Transcribed Date/Time: 06/24/19 0934 [employer] Supervisor: DRU Name Value Range Interpretation Code Description Data Zarina rce(s) Supporting Document(s) ID Date Data Source [id number] 06/24/2019 09:35:[address] [facility] Imaging Services Department Imaging Report [address], [place] [address] %(RAD)RES..mtdd.print.filter("line") Name: ROSA MORA : 1995 Age/Sex: 24F Ordering Provider: Marianne Aguero MD Med Rec #: [id number] Reg Status: [facility] Room #: Date of Service: 06/23/19 Report Number: [id number] cc:Elenita Anderson MD Send Report To: [id number] XRP/XR Foot Lt 2 View Reason for exam: injury FINDINGS/IMPRESSION: There is no evidence of fracture or dislocation. No significant degenerative changes. Time portable performed: Fluoroscopy time in seconds: Number of Exposures: Contrast Agent in ml: Method of Administration: REPORT SIGNATURE ON FILE Reported By: Ad Lai MD <Electronically signed by Ad Lai MD> 06/24/19 1551 Dictation Date/Time: 06/23/19 1722 Transcribed Date/Time: 06/24/19 0935 [employer] Supervisor: DRU Name Value Range Interpretation Code Description Data Zarina rce(s) Supporting Document(s) Procedure Vital Signs ID Date Data Source UNK Name Value Range Interpretation Code Description Data Source(s) Diastolic blood pressure 50 mm[Hg] 50 mm[Hg] eCW1 ([facility]) Systolic blood pressure 114 mm[Hg] 114 mm[Hg] e CW1 ([facility]) Oxygen saturation in Arterial blood by Pulse oximetry 99 % 99 % W1 ([facility]) Heart rate 87 /min 87 /min [facility] ([facility]) Body temperature 98.1 [degF] 98.1 [degF] W1 ( [facility]) Body mass index (BMI) [Ratio] 28.29 kg/m2 28.29 kg/m2 [facility] ([facility]) Body weight 77.11 kg 77.11 kg eCW1 ([facility]) Body weight 170 [lb_av] 170 [lb_av] W1 ([facility]) Body height 65 [in_i] 65 [in_i] eCW1 ([facility]) Body temperature 98.2 [degF] 98.2 [degF] eCW1 ( [facility]) Body mass index (BMI) [Ratio] 24.96 kg/m2 24.96 kg/m2 eCW1 ([facility]) Body weight Measured 150 [lb_av] 150 [lb_av] eC W1 ([facility]) Body height 65 [in_us] 65 [in_us] eCW1 ([facility]) Diastolic blood pressure 72 mm[Hg] 72 mm[Hg] eCW1 ([facility]) Systolic blood pressure 120 mm[Hg] 120 mm[Hg] e CW1 ([facility]) Deprecated Oxygen saturation in Capillary blood by Oximetry 100 % 100 % eCW1 ([facility]) Heart rate 82 /min 82 /min W1 ([facility]) Body mass index (BMI) [Ratio] 25.03 kg/m2 25.03 kg/m2 eCW1 ([facility]) Body weight Measured 150.4 [lb_av] 150.4 [lb_av ] eCW1 ([facility]) Body height 65 [in_us] 65 [in_us] eCW1 ([facility]) ID Date Data Source [id number] 07/15/2020 05:49:00 PM EST [facility] Name Value Range Interpretation Code Description Data Source(s) Weight Measurement Method 8 8 [facility] Weight 2816 2816 [facility] pital Temperature Source 7 7 [facility] Temperature 97.2 97.2 [facility] spital Respiratory Effort 1 1 [facility] Respiratory Rate 18 18 [facility] Pulse Assessment Method 4 4 G [facility] Pulse Rate 108 108 [facility]/91 134/91 [facility] Weight Measurement Method 8 8 [facility] Weight 2816 2816 [facility] pital Temperature Source 7 7 [facility] Temperature 97.2 97.2 [facility] Respiratory Effort 1 1 [facility] Respiratory Rate 18 18 [facility] Pulse Assessment Method 4 4 G [facility] Pulse Rate 108 108 [facility] pital Height 65 65 [facility] pital Blood Pressure 134/91 134/91 [facility] ID Date Data Source [id number] 04/12/2020 12:38:00 PM EST [facility] Name Value Range Interpretation Code Description Data Source(s) Weight Measurement Method 8 8 [facility] Weight 2720 2720 [facility] pital Temperature Source 7 7 [facility] Temperature 98.1 98.1 [facility] spital Respiratory Effort 1 1 [facility] Respiratory Rate 16 16 [facility] Pulse Assessment Method 4 4 G [facility] Pulse Rate 97 97 [facility] pital Height 65 65 [facility] pital Blood Pressure 117/68 117/68 [facility] Weight Measurement Method 8 8 [facility] Weight 2720 2720 [facility] pital Temperature Source 7 7 [facility] Temperature 98.1 98.1 [facility] spital Respiratory Effort 1 1 [facility] Respiratory Rate 16 16 [facility] Pulse Assessment Method 4 4 G [facility] Pulse Rate 97 97 [facility] pital Height 65 65 [facility] pital Blood Pressure 117/68 117/68 [facility] ID Date Data Source [id number] 06/24/2019 03:52:00 PM EST [facility] Name Value Range Interpretation Code Description Data Source(s) Weight Measurement Method 8 8 [facility] Weight 86 86 [facility] pital Temperature Source 7 7 [facility] Temperature 97.4 97.4 [facility] Respiratory Effort 1 1 [facility] Respiratory Rate 17 17 [facility] Pulse Assessment Method 4 4 G [facility] Pulse Rate 98 98 [facility] Height 66 66 [facility] Blood Pressure 140/90 140/90 [facility] Patient Treatment Plan of Care Planned Activity Planned Date Details Description Data Source (s) Sertraline 50 MG Oral Tablet [Zoloft] 09/19/2019 12:00:00 AM EDT eCW1 ([facility]) Sertraline 50 MG Oral Tablet [Zoloft] 09/19/2019 12:00:00 AM EDT eCW1 ([facility]) Sertraline 50 MG Oral Tablet [Zoloft] 09/19/2019 12:00:00 AM EDT eCW1 ([facility]) Sertraline 50 MG Oral Tablet [Zoloft] 09/19/2019 12:00:00 AM EDT eCW1 ([facility]) Sertraline 50 MG Oral Tablet [Zoloft] 09/19/2019 12:00:00 AM EDT eCW1 ([facility]) Sertraline 50 MG Oral Tablet [Zoloft] 09/19/2019 12:00:00 AM EDT eCW1 ([facility]) Sertraline 50 MG Oral Tablet [Zoloft] 09/19/2019 12:00:00 AM EDT eCW1 ([facility]) Sertraline 50 MG Oral Tablet [Zoloft] 09/19/2019 12:00:00 AM EDT eCW1 ([facility]) Sertraline 50 MG Oral Tablet [Zoloft] 09/19/2019 12:00:00 AM EDT eCW1 ([facility]) Sertraline 50 MG Oral Tablet [Zoloft] 09/19/2019 12:00:00 AM EDT eCW1 ([facility]) Sertraline 50 MG Oral Tablet [Zoloft] 09/19/2019 12:00:00 AM EDT eCW1 ([facility]) Sertraline 50 MG Oral Tablet [Zoloft] 09/19/2019 12:00:00 AM EDT eCW1 ([facility]) Sertraline 50 MG Oral Tablet [Zoloft] 09/19/2019 12:00:00 AM EDT eCW1 ([facility]) Sertraline 50 MG Oral Tablet [Zoloft] 09/19/2019 12:00:00 AM EDT eCW1 ([facility]) Sertraline 50 MG Oral Tablet [Zoloft] 09/19/2019 12:00:00 AM EDT eCW1 ([facility]) Augmentin 875-125 MG 06/12/2019 12:00:00 AM EST eCW1 ([facility])
[2020-07-15 18:35] LABS: HEMATOCRIT 35.2 % (36.0-47.0); HEMOGLOBIN 11.4 g/dl (12.0-15.5); MEAN CORPUSCULAR HEMOGLOBIN 29.4 pg (27.0-33.0); MEAN CORPUSCULAR HGB CONC 32.4 g/dl (32.0-36.5); MEAN CORPUSCULAR VOLUME 90.7 fl (80.0-96.0); PLATELET COUNT, AUTOMATED 195 10^3/uL (150-450); RED BLOOD COUNT 3.88 10^6/uL (4.00-5.40); WHITE BLOOD COUNT 13.2 10^3/uL (4.0-10.0)
[2020-07-15] MEDS ORDERED: OXYTOCIN 30 UNITS IN 0.9% NaCl 500ML IV BAG (J2590) As Ordered ONE (19:06)
--- NOTE | 2020-07-15 19:26 | DNPDOC ---
[facility] Delivery Note Delivery Note DATE OF DELIVERY: July 15, 2020 PREDELIVERY DIAGNOSIS: 37-2/7 weeks' gestation and labor. POST DELIVERY DIAGNOSIS: Delivered. PROCEDURE: Spontaneous vaginal delivery. 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 Andrew Fraser MD ANESTHESIA: none. ESTIMATED BLOOD LOSS: 300 mL. FINDINGS: 6 pound 5 ounce male , Score 8/9. DELIVERY SUMMARY: Patient is a 25-year-old 3 now para 2 who was admitted to labor and delivery for labor. She progressed to become fully dilated with no augmentation. After a 5 minute second stage of labor she had a spontaneous vaginal delivery of a 6 lb. 5 oz. male infant, Score 8/9. No nuchal cord. Shoulders delivered with ease. Placenta delivered spontaneously, and appeared intact. No vaginal lacerations present. Pt received IV Pitocin immediately after delivery of the placenta. Sponge counts correct. ANDREW FRASER MD Jul 15, 2020 19:26
--- NOTE | 2020-07-15 19:40 | HPEPDOC ---
Obstetrical History & Physical General Date of Admission Jul 15, 2020 at 18:17 History of Present Illness 25 yo female at 37 2/7 weeks gestation by LMP c/w 7 week ultrasound (EDC=08/04/2020) presents by ambulance as a transfer from [facility] due to labor. She reports breaking her water at 5:30 am the morning of admission. Her contractions became more intense. Her care was through [facility]. Information Provided By: Patient Age: 25 : 5 Term: 1 Pre-term: 0 Abortions: 3 Livin Care Care: Limited Care Dating Final EDC: Aug 04, 2020 Final EDC by: LMP, 1st trimester (US) Antepartum Course Diagnos(e)s Care through [facility] h/o opioid dependence. Pt takes Suboxone 8 mg TID Past Medical History Past Obstetrical History : Past Obstetrical History: Multigravida Past Medical History Medical History OB hx: SAB x 1 demise at 20 weeks x 1 04/29/2015 TSVD 6#15 oz male infant Medical hx: STD's: h/o chlamydia, trichomonas h/o opioid dependence, on Suboxone surgical hx: Tympanostomy tubes adenoidectomy wisdom tooth extraction Social History Marital Status: Single Family situation: Spouse/partner home * Smoker: current smoker Alcohol: rarely Drugs: marijuana, prescription drugs Allergies Coded Allergies: No Known Drug Allergies (Verified Allergy, Mild, 07/15/20) Physical Examination Physical Examination GENERAL: Alert and oriented times three. BREAST: . ABDOMEN: Gravid and non-tender to touch. FETUS: Is vertex (VTX) by sterile vaginal examination (SVE), fetus is vertex (VTX) by Bridger. HEART RATE: Regular rate and rhythm. LUNGS: Clear to auscultation (CTA). EXTREMITIES: No edema. No clonus. Deep tendon reflexes (DTRs) + . Laboratory Data 24H LABS Laboratory Tests 2 07/15/20 18:19: Nucleated Red Blood Cells % (auto) 0.0, Syphilis Serology NONREACTIVE CBC/BMP Laboratory Tests 07/15/20 18:19 Pertinent Laboratoy Data Blood Type: O+ Group B Streptococcus: Negative Vaginal Examination Dilation: 5 cm Effacement: 100% Station: -1, 0 Cervical Consistency: Soft Cervical Position: Middle Presentation: Cephalic presentation Assessment Variability: Moderate Accelerations: Positive Decelerations: None Tocometer Contractions: Yes Frequency: regular, every 3-7 min. Strength: palpated as moderate Assessment/Plan Assessment Pt is a 25-year-old (G)5 para (P)1, 0,3,1 at 37 2/7 weeks by LMP c/w 7 week ultrasound presents in active labor with SROM. Plan Admit and orient. 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 Group B Streptococcus (GBS) negative. Anticipate [normal spontaneous delivery ()]. C-S as appropriate. ANDREW FRASER MD Jul 15, 2020 19:40
[2020-07-15] MEDS ORDERED: ACETAMINOPHEN TAB 650MG DOSE (2X325MG) PO PRN (19:45)
[2020-07-15] MEDS ORDERED: IBUPROFEN 600MG TAB PO PRN (19:45)
[2020-07-15] MEDS ORDERED: METHYLERGONOVINE MALEATE 0.2 MG TAB PO PRN (19:45)
[2020-07-15] MEDS ORDERED: RHOGAM 300 MCG (1500 IU) INJ (J2790) IM SCH (19:45)
[2020-07-15] MEDS ORDERED: BENZOCAINE 20% HEMORRHOIDAL OINTMENT 28GM TUBE TOP PRN (19:45)
[2020-07-15] MEDS ORDERED: OXYTOCIN DRIP 30 UNITS in IV 1 EA IV ONE (19:45)
[2020-07-15] MEDS ORDERED: MEASLES,MUMPS,RUBELLA VACCINE INJ (MMR-II) (90707) SC SCH (19:45)
[2020-07-15] MEDS ORDERED: BUPR8SUB SL (20:12)
[2020-07-15] MEDS ORDERED: BUPRENORPHINE HCL 8MG SUBINGUAL TABLET SL SCH (21:00)
[2020-07-15] MEDS: BUPRENORPHINE HCL 8MG SUBINGUAL TABLET SL SCH (21:00)
[2020-07-15] MEDS ORDERED: BUPRENORPHINE/NALOXONE 8-2MG SUBLINGUAL TABLET(SUBOXONE) SL SCH (21:00)
[2020-07-15 21:24] VITALS: BP 135/94
[2020-07-15] MEDS: IBUPROFEN 800 MG TAB PO PRN ×2 (21:49→22:30)
[2020-07-15] MEDS: DOCUSATE SODIUM 100MG CAPSULE PO PRN (21:49)
[2020-07-16 04:32] LABS: HEPATITIS B SURFACE ANTIGEN NEGATIVE (NEGATIVE)
[2020-07-16 05:42] VITALS: BP 125/73
[2020-07-16] MEDS: PRENATAL VITAMINS CHEWABLE TABLET PO SCH (07:51)
[2020-07-16] MEDS: IBUPROFEN 800 MG TAB PO PRN (07:52)
[2020-07-16] MEDS: BUPRENORPHINE HCL 8MG SUBINGUAL TABLET SL SCH ×3 (07:53→22:54)
[2020-07-16] MEDS: ACETAMINOPHEN 500 MG TAB PO PRN ×3 (12:41→21:52)
[2020-07-16 14:04] LABS: AMPHETAMINES URINE REFLEX NEGATIVE (NEGATIVE); BARBITURATES URINE REFLEX NEGATIVE (NEGATIVE); BENZODIAZEPINES URINE REFLEX NEGATIVE (NEGATIVE); METHADONE URINE REFLEX NEGATIVE (NEGATIVE); OPIATES URINE REFLEX NEGATIVE (NEGATIVE); PHENCYCLIDINE URINE REFLEX NEGATIVE (NEGATIVE)
[2020-07-16 14:14] LABS: CANNABINOIDS URINE REFLEX PENDING CONFIRMATION (NEGATIVE); COCAINE METABOLITE URINE REFLE PENDING CONFIRMATION (NEGATIVE)
[2020-07-16] MEDS: DOCUSATE SODIUM 100MG CAPSULE PO PRN (21:52)
[2020-07-17] MEDS: IBUPROFEN 800 MG TAB PO PRN (01:39)
[2020-07-17 05:06] VITALS: BP 136/71
[2020-07-17] MEDS: BUPRENORPHINE HCL 8MG SUBINGUAL TABLET SL SCH (09:00)
[2020-07-17] MEDS: PRENATAL VITAMINS CHEWABLE TABLET PO SCH (09:36)
[2020-07-17] MEDS ORDERED: BOOSTRIX/ADACEL VACCINE (DIPHTH/PERTUSS/ACELL/TETANUS) 0.5ML SYR IM ONE (10:00)
[2020-07-21 05:06] LABS: Cannabinoid Positive (.); Cocaine Positive (.); GC Benzoylecgon 14180 ng/mL (Cutoff=150); GC Carboxy THC 444 ng/mL (Cutoff=10)
== END 2020-07-17 13:20 | disposition home or self-care (01) | DRG 560 ==
LOC: M LDO 18:08 → M LDI 18:17 → M OBS 21:10
PROVIDERS: ADMIT Specialist; ATTEND Specialist
PROC: 10E0XZZ Delivery of Products of Conception, External Approach (ICD-10-PCS; principal; 2020-07-15)
DX: O99.334 Smoking (tobacco) complicating childbirth (principal); F17.218 Nicotine dependence, cigarettes, with other nicotine-induced disorders; Z3A.37 37 weeks gestation of pregnancy; Z37.0 Single live birth

== ENCOUNTER 2021-12-03 04:45 | Emergency (ER) | payer OTHER ==
[~2021-12-03] VITALS: Ht 165.1 cm; Wt 77.9 kg
[~2021-12-03 04:45] MED LIST: BUPR8SUB SL
[2021-12-03 04:49] VITALS: BP 135/99
[2021-12-03] MEDS ORDERED: GABA600T4 PO (05:18)
[2021-12-03] MEDS ORDERED: HYDR1TAB33 PO (05:18)
== END 2021-12-03 05:42 | disposition left against medical advice (07) ==
LOC: M ED 04:45
DX: Z53.21 Procedure and treatment not carried out due to patient leaving prior to being seen by health care provider (principal)